=== PATIENT | female | born 1940 | race African-American/Black ===

== ENCOUNTER 2016-03-05 13:07 | Emergency (ER) | payer MEDICARE, MEDICAID ==
[~2016-03-05] VITALS: Ht 172.7 cm; Wt 72.6 kg
[~2016-03-05 13:07] MED LIST: ACET-2605 GT; ACET-868 GT; ASPI81TA2 PO; BACI15OI TP; BISA10SU8 RC; CINA30TA GT; DIVA250T4 GT; DOCU250C30 PO; LORA-258 GT; MAGN400O4 PO; NA P133E RC; NUTR250L48 GT; PANT20TA2 PO; QUET25TA GT; SIMV40TA2 GT; TEMA7.5C PO
[2016-03-05] MEDS ORDERED: DIATR MEGLU/DIATRIZOATE SODIUM 30 ML BOTTLE (GASTROGRAPHIN) ONE (13:28)
[2016-03-05 14:02] VITALS: BP 134/77
[2016-03-06] MEDS ORDERED: DOCU-270 GT (10:38)
[2016-03-06] MEDS ORDERED: MAGN400O6 GT (10:38)
[2016-03-06] MEDS ORDERED: DEXT1CAP3 GT (10:38)
[2016-03-06] MEDS ORDERED: NUT.237L31 GT (10:38)
== END 2016-03-05 14:02 | disposition home or self-care (01) ==
LOC: ER 13:08
DX: K94.23 Gastrostomy malfunction (principal); Z88.5 Allergy status to narcotic agent; Z88.8 Allergy status to other drugs, medicaments and biological substances; I10 Essential (primary) hypertension; E11.9 Type 2 diabetes mellitus without complications; R56.9 Unspecified convulsions
CPT/HCPCS: 74000-TC; A4606; Q9963; Z7610

== ENCOUNTER 2016-03-06 08:02 | Emergency (ER) | payer MEDICARE, MEDICAID ==
[~2016-03-06] VITALS: Ht 172.7 cm; Wt 90.7 kg
[2016-03-06] MEDS ORDERED: DIATR MEGLU/DIATRIZOATE SODIUM 30 ML BOTTLE (GASTROGRAPHIN) ONE (10:12)
[2016-03-06 10:15] LABS: BASOPHILS % (AUTO) 0.5 % (0.0-2.0); DIFF TOTAL % 100 %; EOSINOPHILS # (AUTO) 0.1 /CMM (0.0-0.7); EOSINOPHILS % (AUTO) 1.3 % (0.0-6.0); HEMATOCRIT 40 % (33-45); HEMOGLOBIN 13.5 g/dL (11.5-14.8); LYMPHOCYTES # (AUTO) 1.8 /CMM (0.8-4.8); MEAN CORPUSCULAR HEMOGLOBIN 32 PG (26.0-33.0); MEAN CORPUSCULAR HGB CONC 34 g/dl (31.0-36.0); MEAN CORPUSCULAR VOLUME 97 fL (82-100); MONOCYTES # (AUTO) 0.9 /CMM (0.1-1.30); MONOCYTES % (AUTO) 14.3 % (2.0-12.0); NEUTROPHILS # (AUTO) 3.5 /CMM (1.8-8.9); NEUTROPHILS % (AUTO) 54.9 % (43.0-81.0); PLATELET COUNT (AUTO) 119 /CMM (150-450); RED BLOOD CELL COUNT(AUTO) 4.17 MIL/uL (4.0-5.2); WHITE BLOOD COUNT (AUTO) 6.3 K/uL (4.3-11.0)
[2016-03-06 10:21] LABS: CREATININE 0.7 mg/dL (0.6-1.3); POTASSIUM 4.4 mmol/L (3.5-5.1)
[2016-03-06] MEDS ORDERED: MAGN400O6 GT (10:38)
[2016-03-06] MEDS ORDERED: DOCU-270 GT (10:38)
[2016-03-06] MEDS ORDERED: NUT.237L31 GT (10:38)
[2016-03-06] MEDS ORDERED: DEXT1CAP3 GT (10:38)
[2016-03-06 12:18] VITALS: BP 133/81
== END 2016-03-06 12:19 | disposition home or self-care (01) ==
LOC: ER 08:07
DX: Z46.59 Encounter for fitting and adjustment of other gastrointestinal appliance and device (principal); I10 Essential (primary) hypertension; E11.9 Type 2 diabetes mellitus without complications; F20.9 Schizophrenia, unspecified; F32.9 Major depressive disorder, single episode, unspecified; F41.9 Anxiety disorder, unspecified; K21.9 Gastro-esophageal reflux disease without esophagitis; M19.90 Unspecified osteoarthritis, unspecified site; Z88.5 Allergy status to narcotic agent; Z88.8 Allergy status to other drugs, medicaments and biological substances; Z79.82 Long term (current) use of aspirin
CPT/HCPCS: 36415; 43760; 74000; 80048; 85025; 99285; A4606 ×2; Q9963; Z7610

== ENCOUNTER 2016-09-13 11:37 | Emergency (ER) | payer MEDICARE, MEDICAID ==
[~2016-09-13] VITALS: Ht 162.6 cm; Wt 63.5 kg
[~2016-09-13 11:37] MED LIST changes: -ASPI81TA2 PO; -BACI15OI TP; +DEXT1CAP3 GT; +DOCU-270 GT; -DOCU250C30 PO; -MAGN400O4 PO; +MAGN400O6 GT; +NUT.237L31 GT; -NUTR250L48 GT; -PANT20TA2 PO; -TEMA7.5C PO
--- NOTE | 2016-09-13 11:46 | NUR ---
AUNDREA FROM [facility] FOR GT REPLACEMENT. PER REPORT GT WAS DISLODGE THIS AM. MIRANDA WAS INPLACED TO MAINTAIN PATENCY. PATIENT IS AAO3. IN NO APPARENT DISTRESS. VSS
--- NOTE | 2016-09-13 12:06 | NUR ---
DR GANN AT BEDSIDE FOR GT REPLACEMENT. 16FR GTUBE INSERTED. TOLERATED WELL.
[2016-09-13] MEDS ORDERED: DIATR MEGLU/DIATRIZOATE SODIUM 30 ML BOTTLE (GASTROGRAPHIN) ONE (12:16)
--- NOTE | 2016-09-13 12:24 | NUR ---
XRAY AT BEDSIDE FOR KUB
--- NOTE | 2016-09-13 13:05 | NUR ---
CALLED [facility] FOR TRANSPORT TO [facility], ETA 30 MIN
--- NOTE | 2016-09-13 14:04 | NUR ---
NEW ETA [phone]
[2016-09-13 14:33] VITALS: BP 130/74
--- NOTE | 2016-09-13 14:36 | NUR ---
Patient discharged to SNF in stable condition. Written and verbal after care instructions given. readers' advisory service librarian verbalizes understanding of instruction.
== END 2016-09-13 14:34 ==
LOC: ER 11:38
DX: Z43.1 Encounter for attention to gastrostomy (principal); E11.9 Type 2 diabetes mellitus without complications; E78.00 Pure hypercholesterolemia, unspecified; I10 Essential (primary) hypertension; K21.9 Gastro-esophageal reflux disease without esophagitis; K59.00 Constipation, unspecified; M85.80 Other specified disorders of bone density and structure, unspecified site; R56.9 Unspecified convulsions; Z88.5 Allergy status to narcotic agent; Z88.8 Allergy status to other drugs, medicaments and biological substances; F25.9 Schizoaffective disorder, unspecified
CPT/HCPCS: 74000-TC; A4606; Q9963; Z7610

== ENCOUNTER 2017-06-23 17:38 | Emergency (ER) | payer MEDICARE, MEDICAID ==
[~2017-06-23] VITALS: Ht 167.6 cm; Wt 73.0 kg
[~2017-06-23 17:38] MED LIST changes: -CINA30TA GT; +CINA30TA2 GT
--- NOTE | 2017-06-23 18:00 | NUR ---
BIB PRIVATE EMT, G-TUBE REPLACEMENT.
--- NOTE | 2017-06-23 18:11 | NUR ---
HSANTA AT BS FOR GT REPLACEMENT
[2017-06-23] MEDS ORDERED: DIATR MEGLU/DIATRIZOATE SODIUM 30 ML BOTTLE (GASTROGRAPHIN) ONE (18:15)
--- NOTE | 2017-06-23 19:17 | NUR ---
CALLED [facility] FOR TRANSPORT ETA OF [phone] WAS GIVEN. TRIP#[id number]
[2017-06-23 21:36] VITALS: BP 112/78
== END 2017-06-23 21:37 | disposition home or self-care (01) ==
LOC: ER 17:45
DX: Z43.1 Encounter for attention to gastrostomy (principal); I10 Essential (primary) hypertension; E11.9 Type 2 diabetes mellitus without complications; K21.9 Gastro-esophageal reflux disease without esophagitis; F31.9 Bipolar disorder, unspecified; F20.9 Schizophrenia, unspecified; M06.9 Rheumatoid arthritis, unspecified; E78.00 Pure hypercholesterolemia, unspecified; D64.9 Anemia, unspecified; Z88.5 Allergy status to narcotic agent; Z88.8 Allergy status to other drugs, medicaments and biological substances
CPT/HCPCS: 43760; 74018; 99284; A4606; Q9963; Z7610

== ENCOUNTER 2017-07-09 13:01 | Inpatient (IN) | payer MEDICARE, MEDICAID ==
[~2017-07-09] VITALS: Ht 162.6 cm; Wt 65.3 kg
--- NOTE | 2017-07-09 13:10 | NUR ---
BB PRIVATE EMS FROM [facility] FOR EVAL OF MASS TO RT BREAST, NOTED ON 07/07. NAD NOTED, VSS, RESP EVEN AND UNLABORED, PT WAS PUT ON HOSPITAL GOWN AND MONITOR. AT FOR EVAL.
--- NOTE | 2017-07-09 13:20 | NUR ---
CALLED NURSING SUP AND REQUESTED A MED SURG BED FOR THIS PT.
--- NOTE | 2017-07-09 13:25 | NUR ---
CALLED [facility] FOR PANEL CALL AND DR MORRISON WAS PAGED.
[2017-07-09] MEDS ORDERED: ASPI-1169 GT (13:40)
[2017-07-09] MEDS ORDERED: AMIN30LI2 GT (13:40)
[2017-07-09] MEDS ORDERED: NUT.237L30 GT (13:40)
[2017-07-09] MEDS ORDERED: VALP250S22 GT (13:40)
[2017-07-09 13:50] LABS: BASOPHILS # (AUTO) 0.1 /CMM (0.0-0.2); BASOPHILS % (AUTO) 1.6 % (0.0-2.0); EOSINOPHILS % (AUTO) 0.5 % (0.0-6.0); HEMATOCRIT 42 % (33-45); HEMOGLOBIN 13.8 g/dL (11.5-14.8); LYMPHOCYTES # (AUTO) 2.9 /CMM (0.8-4.8); LYMPHOCYTES % (AUTO) 39.2 % (20.0-44.0); MEAN CORPUSCULAR HGB CONC 33 g/dl (31.0-36.0); MEAN CORPUSCULAR VOLUME 96 fL (82-100); MONOCYTES # (AUTO) 0.6 /CMM (0.1-1.30); MONOCYTES % (AUTO) 7.7 % (2.0-12.0); NEUTROPHILS # (AUTO) 3.8 /CMM (1.8-8.9); PLATELET COUNT (AUTO) 168 /CMM (150-450); RDW COEFFICIENT OF VARIATION 13.2 (11.5-15.0); RED BLOOD CELL COUNT(AUTO) 4.32 MIL/uL (4.0-5.2); WHITE BLOOD COUNT (AUTO) 7.4 K/uL (4.3-11.0)
[2017-07-09 13:58] LABS: CALCIUM, SERUM 9.3 mg/dL (8.5-10.1); CARBON DIOXIDE 28 mmol/L (21-32); CHLORIDE 104 mmol/L (98-107); CREATININE 0.6 mg/dL (0.6-1.3); GLUCOSE 104 mg/dL (74-106); POTASSIUM 5.1 mmol/L (3.5-5.1); SODIUM SERUM 138 mmol/L (136-145); UREA NITROGEN, BLOOD 17 mg/dL (7-18)
--- NOTE | 2017-07-09 14:19 | NUR ---
PT IS ASSIGNED TO MED SURG RM#: [id number], PT IS DIAGNOSED WITH BREAST MASS, AND DR MORRISON IS THE ACCEPTING MD.
[2017-07-09 14:29] LABS: INR 0.99 (0.85-1.15)
[2017-07-09] MEDS ORDERED: Z GUARD REMEDY 2 OZ OINT TP PRN (14:30)
[2017-07-09] MEDS ORDERED: ZOLPIDEM TARTRATE 5 MG TABLET GT PRN (14:30)
[2017-07-09] MEDS ORDERED: MAGNESIUM HYDROXIDE 30 ML UDC GT PRN (14:30)
[2017-07-09] MEDS ORDERED: BISACODYL SUPP (10 MG) 10 MG/SUPP.RECT SUPP.RECT RC PRN (14:30)
[2017-07-09] MEDS ORDERED: LORAZEPAM 0.5 MG TABLET GT PRN (14:30)
[2017-07-09] MEDS ORDERED: MAG HYDROX/AL HYDROX/SIMETH 30 ML UDC GT PRN (14:30)
[2017-07-09] MEDS ORDERED: ACETAMINOPHEN 325 MG TABLET PO PRN (14:30)
[2017-07-09] MEDS ORDERED: ONDANSETRON HCL/PF 4 MG/2 ML VIAL IVP PRN (14:30)
[2017-07-09] MEDS ORDERED: GLUCERNA 1.2 1,000 ML BOTTLE GT SCH (14:30)
[2017-07-09] MEDS ORDERED: ACETAMINOPHEN 650 MG/20.3 ML UDC GT PRN (15:30)
--- NOTE | 2017-07-09 15:30 | NUR ---
MS RN NOTES PATIENT ADMITTED TO UNIT, ARRIVED AT 1520 VIA GURNEY, REPORT RECEIVED FROM LASHA FRANCOIS. PATIENT AWAKE, ALERT AND ORIENTED X 4, VERBALLY RESPONSIVE AND RESPONDS TO VERBAL AND TACTILE STIMULI. PATIENT BREATHING EVEN AND UNLABORED. NO SOB OR ACUTE DISTRESS NOTED AT THIS TIME. PATIENT AFEBRILE, SKIN DRY AND WARM TO TOUCH. NO CHANGES IN LOC NOTED AT THIS TIME. PATIENT ADMITTED BY DR. MORRISON, WITH DX OF RIGHT CHEST MASS. NOTED WITH APPROX. 3x3cm LUMP ON RIGHT BREAST. LUMP FIRM AND FORMED, SKIN ON SITE INTACT WITH ORANGE PEEL-LIKE PRESENTATION. PATIENT ACCOMPANIED BY DAUGHTERS AT BEDSIDE. PATIENT AND FAMILY ORIENTED TO UNIT, STAFF, PHYSICIAN, ACTIVITIES, MEDICATIONS AND VERBALIZED UNDERSTANDING. WILL CONTINUE TO MONITOR. MAINTAINED ASPIRATION PRECAUTION, SEIZURE PRECAUTION. BED LOCKED AND IN LOW POSITION. BILATERAL UPPER SIDE RAILS UP AND LOCKED. CALL LIGHT WITHIN EASY REACH
[2017-07-09] MEDS: ENOXAPARIN SODIUM 40 MG/0.4 ML DISP.SYRIN SQ SCH (15:45)
[2017-07-09] MEDS: PROSOURCE / PROSTAT (PYXIS) 30 ML UDC GT SCH (15:45)
[2017-07-09] MEDS: IV NS 0.9% 1,000 ML IV PRN (16:24)
[2017-07-09] MEDS: QUETIAPINE FUMARATE 25 MG TABLET GT SCH (17:52)
--- NOTE | 2017-07-09 17:52 | NUR ---
MS RN NOTES PATIENT NPO PRIOR TO CTA. 1800 MEDICATION NOT ADMINISTERED. MD AWARE. WILL CONTINUE TO MONITOR
--- NOTE | 2017-07-09 18:26 | NUR ---
MS RN NOTES DR. MORRISON WITH ORDER FOR CT CHEST WITH AND WITHOUT CONTRAST, VERIFIED INFORMED CONSENT OBTAINED BY FROM RITA, DAUGHTER AND WITNESSED. RADIOLOGY AWARE. WILL CONTINUE TO MONITOR
--- NOTE | 2017-07-09 18:48 | NUR ---
MS RN NOTES PATIENT RESTING INSIDE ROOM. AWAKE, ALERT AND ORIENTED. VERBALLY RESPONSIVE AND RESPONDS TO VERBAL AND TACTILE STIMULI. ABLE TO MAKE NEEDS KNOWN AND FOLLOW SIMPLE INSTRUCTIONS. BREATHING EVEN AND UNLABORED. NO SOB OR ACUTE DISTRESS NOTED AT THIS TIME. PATIENT CALM AND RELAXED. DAUGHTER GLORIETTE AT BEDSIDE. AWAITING FOR CT CHEST WITH + WITHOUT CONTRAST. AWAITING FOR RADIOLOGY. WILL ENDORSE TO INCOMING SHIFT FOR JOSE GUADALUPE. BED LOCKED AND IN LOW POSITION. BILATERAL UPPER SIDE RAILS UP AND LOCKED. CALL LIGHT WITHIN EASY REACH
[2017-07-09] MEDS ORDERED: IOHEXOL-300 100 ML VIAL IV ONE (19:01)
[2017-07-09 20:00] VITALS: BP 122/63
[2017-07-09] MEDS: VALPROIC ACID 250 MG/5 ML UDC GT SCH (21:44)
[2017-07-09] MEDS: DOCUSATE SODIUM LIQ 100 MG/10 ML UDC GT SCH (21:44)
[2017-07-10] MEDS: QUETIAPINE FUMARATE 25 MG TABLET GT SCH ×4 (00:07→17:30)
[2017-07-10] MEDS: VALPROIC ACID 250 MG/5 ML UDC GT SCH ×3 (05:31→21:14)
[2017-07-10 07:09] LABS: BASOPHILS % (AUTO) 0.4 % (0.0-2.0); HEMATOCRIT 39 % (33-45); HEMOGLOBIN 12.9 g/dL (11.5-14.8); LYMPHOCYTES # (AUTO) 3.8 /CMM (0.8-4.8); LYMPHOCYTES % (AUTO) 58.6 % (20.0-44.0); MEAN CORPUSCULAR HGB CONC 34 g/dl (31.0-36.0); MEAN CORPUSCULAR VOLUME 97 fL (82-100); MONOCYTES # (AUTO) 0.5 /CMM (0.1-1.30); NEUTROPHILS # (AUTO) 2.1 /CMM (1.8-8.9); PLATELET COUNT (AUTO) 172 /CMM (150-450); RDW COEFFICIENT OF VARIATION 14.1 (11.5-15.0); RED BLOOD CELL COUNT(AUTO) 3.98 MIL/uL (4.0-5.2); WHITE BLOOD COUNT (AUTO) 6.5 K/uL (4.3-11.0)
--- NOTE | 2017-07-10 07:20 | NUR ---
ms rn initial notes Received patient in bed, awake, head of bed elevated, no SOB or distress noted, on room air and tolerated well. GT feeding intact and patent with feeding infusing well. IV in placed with IVF infusing well 75ml/hr. Alert and oriented x 2. No facial grimace noted. Call light with in patient reach, will continue to monitor accordingly.
[2017-07-10 07:25] LABS: CALCIUM, SERUM 9.3 mg/dL (8.5-10.1); CARBON DIOXIDE 30 mmol/L (21-32); CHLORIDE 106 mmol/L (98-107); CREATININE 0.6 mg/dL (0.6-1.3); GLUCOSE 102 mg/dL (74-106); MAGNESIUM 1.8 mg/dL (1.8-2.4); PHOSPHORUS 2.8 mg/dL (2.5-4.9); POTASSIUM 4.1 mmol/L (3.5-5.1); SODIUM SERUM 143 mmol/L (136-145); UREA NITROGEN, BLOOD 15 mg/dL (7-18)
[2017-07-10] MEDS: IV NS 0.9% 1,000 ML IV PRN ×2 (07:27→17:34)
[2017-07-10 07:30] LABS: CHOLESTEROL 140 mg/dL (<200); HDL CHOLESTEROL 49 mg/dL (40-60); LDL 82 mg/dL (0-99); TRIGLYCERIDES 90 mg/dL (30-150)
[2017-07-10 08:00] VITALS: BP 129/62
[2017-07-10] MEDS: ASPIRIN 81 MG TAB.CHEW GT SCH (08:38)
[2017-07-10] MEDS: ENOXAPARIN SODIUM 40 MG/0.4 ML DISP.SYRIN SQ SCH (08:39)
[2017-07-10] MEDS: PROSOURCE / PROSTAT (PYXIS) 30 ML UDC GT SCH (08:39)
[2017-07-10 10:00] VITALS: BP 129/62
[2017-07-10] MEDS ORDERED: JEVITY 1.2 CAL 1,000 ML BOTTLE GT PRN (13:00)
[2017-07-10 16:00] VITALS: BP 122/55
[2017-07-10] MEDS: ACETYLCYSTEINE 10% 3,000 MG/30 ML VIAL PO SCH (19:18)
--- NOTE | 2017-07-10 19:25 | NUR ---
ms rn closing notes All needs provided, attended, and anticipated, patient is in stable condition at this time. Endorsed to next shift rn to continue care. Call light with in patient reach.
--- NOTE | 2017-07-10 19:30 | NUR ---
MS RN OPENING NOTES: PATIENT IN BED, AWAKE, NON VERBAL. ON ROOM AIR, BREATHING EVEN AND UNLABORED. BREATH SOUNDS CLEAR TO AUSCULTATION. APPEARS CALM AND IN NO DISTRESS. PATIENT HAS GTUBE, WITH FEEDING OF GLUCERNA CURRENTLY RUNNING AT 40 ML/HR. ABDOMEN SOFT, GT SITE CLEAN, NO REDNESS, SWELLING OR DISCHARGE NOTED. PIV OVER R HAND G 22 INTACT AND INFUSING WELL WITH NS RUNNING AT 75 ML/HR. PROVIDED FOR COMFORT AND SAFETY. BED IN LOWEST AND LOCKED POSITION, SIDERAILS UP X 3, CALL LIGHT WITHIN REACH. WILL CONT TO MONITOR.
[2017-07-10 20:00] VITALS: BP 113/72
[2017-07-10 20:44] VITALS: BP 113/72
[2017-07-10] MEDS: DOCUSATE SODIUM LIQ 100 MG/10 ML UDC GT SCH (21:14)
[2017-07-11] MEDS: QUETIAPINE FUMARATE 25 MG TABLET GT SCH ×5 (00:26→17:26)
[2017-07-11] MEDS: VALPROIC ACID 250 MG/5 ML UDC GT SCH ×2 (04:54→13:09)
--- NOTE | 2017-07-11 04:55 | NUR ---
RN NOTES: MORNING CARE RENDERED, WOUND TREATMENT DONE. PATIENT ABLE TO TALK AT THIS TIME, PATIENT IS AOX4, ABLE TO SAY WHERE SHE IS, WHAT YEAR AND MONTH IT IS, AND WHO THE PRESIDENT IS. SHE WAS ALSO ABLE TO SAY CLEARLY WHY SHE WAS BROUGHT TO THE HOSPITAL, STATES "I HAVE A LUMP IN MY BREAST".
[2017-07-11] MEDS: IV NS 0.9% 1,000 ML IV PRN (05:08)
--- NOTE | 2017-07-11 06:30 | NUR ---
RN NOTES: OBTAINED TELEPHONE CONSENT FOR CT SCAN OF ABDOMEN AND PELVIS, WITH AND WITHOUT CONTRAST FROM PATIENT'S DAUGHTER/ PERSON TO NOTIFY: DARSHAN. PHONE CONSENT WITNESSED BY PRISCILA SHAH. PATIENT'S TUBE FEEDING HELD TEMPORARILY, FOR NPO X4 HRS. RADIOLOGY DEPT INFORMED.
--- NOTE | 2017-07-11 06:55 | NUR ---
MS RN CLOSING NOTES: PATIENT IN BED, AOX4, ON ROOM AIR, BREATHING EVEN AND UNLABORED. APPEARS CALM AND IN NO DISTRESS. GT FEEDING OF JEVITY 1.2 HELD FOR NOW, FOR CT SCAN OF ABDOMEN AND PELVIS WITH AND WITHOUT CONTRAST. PROVIDED FOR COMFORT AND SAFETY. MORNING CARE RENDERED. TURNED AND REPOSITIONED. BED IN LOWEST AND LOCKED POSITION, SIDERAILS UP X 3, BED ALARMS ON. NO ACUTE CHANGE IN CONDITION NOTED THROUGH SHIFT. WILL ENDORSE TO AM RN FOR JOSE GUADALUPE.
[2017-07-11 07:09] LABS: BASOPHILS % (AUTO) 0.6 % (0.0-2.0); EOSINOPHILS % (AUTO) 1.3 % (0.0-6.0); HEMATOCRIT 35 % (33-45); HEMOGLOBIN 11.7 g/dL (11.5-14.8); LYMPHOCYTES # (AUTO) 3.1 /CMM (0.8-4.8); LYMPHOCYTES % (AUTO) 51.1 % (20.0-44.0); MEAN CORPUSCULAR HGB CONC 34 g/dl (31.0-36.0); MEAN CORPUSCULAR VOLUME 97 fL (82-100); MONOCYTES # (AUTO) 0.5 /CMM (0.1-1.30); MONOCYTES % (AUTO) 8.7 % (2.0-12.0); NEUTROPHILS # (AUTO) 2.3 /CMM (1.8-8.9); NEUTROPHILS % (AUTO) 38.3 % (43.0-81.0); PLATELET COUNT (AUTO) 137 /CMM (150-450); RDW COEFFICIENT OF VARIATION 13.9 (11.5-15.0); RED BLOOD CELL COUNT(AUTO) 3.62 MIL/uL (4.0-5.2)
[2017-07-11 07:18] LABS: CALCIUM, SERUM 8.8 mg/dL (8.5-10.1); CARBON DIOXIDE 26 mmol/L (21-32); CHLORIDE 110 mmol/L (98-107); CREATININE 0.6 mg/dL (0.6-1.3); GLUCOSE 105 mg/dL (74-106); MAGNESIUM 1.7 mg/dL (1.8-2.4); PHOSPHORUS 2.8 mg/dL (2.5-4.9); POTASSIUM 4.1 mmol/L (3.5-5.1); SODIUM SERUM 143 mmol/L (136-145); UREA NITROGEN, BLOOD 14 mg/dL (7-18)
[2017-07-11 08:00] VITALS: BP 127/57
[2017-07-11] MEDS: ENOXAPARIN SODIUM 40 MG/0.4 ML DISP.SYRIN SQ SCH (09:00)
[2017-07-11] MEDS: ACETYLCYSTEINE 10% 3,000 MG/30 ML VIAL PO SCH ×3 (09:00→17:25)
[2017-07-11] MEDS ORDERED: IOHEXOL-300 100 ML VIAL IV ONE (10:46)
[2017-07-11] MEDS ORDERED: CT SWABBABLE VALVE TRANS SET 1 EA INFUS.SET MC ONE (10:46)
[2017-07-11] MEDS ORDERED: IV NS 0.9% 500 ML IV ONE (10:46)
[2017-07-11] MEDS: ASPIRIN 81 MG TAB.CHEW GT SCH (11:35)
[2017-07-11] MEDS: PROSOURCE / PROSTAT (PYXIS) 30 ML UDC GT SCH (11:35)
[2017-07-11] MEDS: Magnesium 1GM/D5W 100ML PREMIX 100 ML IV SCH ×2 (13:10→14:31)
[2017-07-11 16:00] VITALS: BP 111/55
--- NOTE | 2017-07-11 17:30 | NUR ---
DTR. REFUSING SEROQUEL AT 1300 AND 1700 PM.STATES MOM TOO SLEEPY.
--- NOTE | 2017-07-11 17:45 | NUR ---
MG IV REPLACEMENT DONE.
--- NOTE | 2017-07-11 18:00 | NUR ---
PT. REFUSED DISCHARGE PHOTOS.
--- NOTE | 2017-07-11 18:45 | NUR ---
REPORT CALLED TO STEPHANIE AT IN FACILITY.
--- NOTE | 2017-07-11 19:50 | NUR ---
CLERK OF SUPERIOR COURT NOTES RECEIVED REPORT THAT PATIENT IS GOING TO BE DISCHARGED TONIGHT. DR MYLES AT PATIENT'S BEDSIDE. ALL DISCHARGE INSTRUCTIONS GIVEN TO ENRIQUETA, PATIENT'S DAUGHTER, BELONGINGS LIST SIGNED. PATIENT IN BED, IN STABLE CONDITION. IV LINE REMOVED. PERSONNEL FROM [facility] IN THE UNIT FOR TO ORACLE BPM CONSULTANT PATIENT FOR TRANSPORTATION. REPORT GIVEN FOR TRANSFER OF CARE. PERSONNEL SAFELY TRANSFERRED PATIENT FROM BED TO RNEY. LEFT UNIT SAFELY VIA RNEY IN STABLE CONDITION.
== END 2017-07-11 19:15 | DRG 597 ==
LOC: ER 13:47 → MED 14:37
PROVIDERS: ADMIT Internal Medicine; ATTEND Internal Medicine
DX: C50.911 Malignant neoplasm of unspecified site of right female breast (principal); G93.40 Encephalopathy, unspecified; E44.0 Moderate protein-calorie malnutrition; R53.2 Functional quadriplegia; R13.10 Dysphagia, unspecified; D64.9 Anemia, unspecified; F20.9 Schizophrenia, unspecified; Z93.1 Gastrostomy status; E11.9 Type 2 diabetes mellitus without complications; E78.5 Hyperlipidemia, unspecified; F31.9 Bipolar disorder, unspecified; G40.909 Epilepsy, unspecified, not intractable, without status epilepticus; K21.9 Gastro-esophageal reflux disease without esophagitis; K59.00 Constipation, unspecified; M06.9 Rheumatoid arthritis, unspecified; M62.40 Contracture of muscle, unspecified site; Z86.73 Personal history of transient ischemic attack (TIA), and cerebral infarction without residual deficits; I10 Essential (primary) hypertension; Z79.899 Other long term (current) drug therapy; Z79.84 Long term (current) use of oral hypoglycemic drugs; Z87.440 Personal history of urinary (tract) infections; Z88.5 Allergy status to narcotic agent; Z88.8 Allergy status to other drugs, medicaments and biological substances
CPT/HCPCS: 36415; 71045-TC; 71270-TC; 76642-TC; 80048-TC; 80061-TC; 83735-TC; 84100-TC; 85025-TC; 85730-TC; 86300; 87081-TC; 93307-TC; A4217; A4606; J1650; J7030; J7040; Q9967; Z7610

== ENCOUNTER 2017-12-31 17:25 | Emergency (ER) | payer MEDICARE, MEDICAID ==
[~2017-12-31] VITALS: Ht 162.6 cm; Wt 65.3 kg
[~2017-12-31 17:25] MED LIST changes: +AMIN30LI2 GT; +ASPI-1169 GT; -DEXT1CAP3 GT; -DIVA250T4 GT; +NUT.237L30 GT; -NUT.237L31 GT; -SIMV40TA2 GT; +VALP250S22 GT
[2017-12-31 17:29] VITALS: BP 143/89
[2017-12-31] MEDS ORDERED: DIATR MEGLU/DIATRIZOATE SODIUM 30 ML BOTTLE (GASTROGRAPHIN) ONE (17:33)
--- NOTE | 2017-12-31 17:33 | NUR ---
22FR GTUBE INSERTED BTY DR SALGADO, TOLERATED WELL. CALLED RADIOLOGY FOR STAT KUB.
--- NOTE | 2017-12-31 17:41 | NUR ---
REPORT GIVEN TO ANN GUERRERO FOR TRANSPORT BACK TO [facility] Addendum: 12/31/17 at 1802 by HFOX AMMENCONSTANTINEENT: [facility]
--- NOTE | 2017-12-31 18:02 | NUR ---
PATIENT DISCHARGED IN STABLE CONDITION VIA [facility].
[2018-01-04] MEDS ORDERED: ANAS1TAB8 GT (14:58)
[2018-01-04] MEDS ORDERED: ONDA8TAB6 GT (14:58)
[2018-01-04] MEDS ORDERED: CAPE500T GT (14:58)
[2018-01-04] MEDS ORDERED: PROC10TA29 GT (14:58)
[2018-01-08] MEDS ORDERED: LEVO750T21 PO (11:15)
== END 2017-12-31 18:01 ==
LOC: ER 17:31
DX: K94.23 Gastrostomy malfunction (principal); R56.9 Unspecified convulsions; I67.4 Hypertensive encephalopathy; K21.9 Gastro-esophageal reflux disease without esophagitis; N39.0 Urinary tract infection, site not specified; E11.9 Type 2 diabetes mellitus without complications; F20.9 Schizophrenia, unspecified; F31.9 Bipolar disorder, unspecified; R13.10 Dysphagia, unspecified; E78.00 Pure hypercholesterolemia, unspecified; Z88.5 Allergy status to narcotic agent; Z79.82 Long term (current) use of aspirin; Z88.8 Allergy status to other drugs, medicaments and biological substances
CPT/HCPCS: 74018; A4606; Q9963; Z7610

== ENCOUNTER 2018-03-30 12:50 | Emergency (ER) | payer MEDICARE, MEDICAID ==
[~2018-03-30] VITALS: Ht 165.1 cm; Wt 68.0 kg
[~2018-03-30 12:50] MED LIST changes: +ANAS1TAB8 GT; -CINA30TA2 GT; +LEVO750T21 PO; +ONDA8TAB6 GT; +PROC10TA29 GT; -QUET25TA GT
--- NOTE | 2018-03-30 13:04 | NUR ---
AUNDREA FROM [facility], PT PULLED OUT G-TUBE THIS MORNING. TO ER BED 5, HOOKED TO MONITOR, AWAITING MD MA.
--- NOTE | 2018-03-30 13:06 | NUR ---
DR LIMA AT BEDSIDE FOR REINSERTION OF G-TUBE.
--- NOTE | 2018-03-30 13:12 | NUR ---
CALLED TRANSPORT ETA IS 1415 PER JOSE TRIP #[id number]
--- NOTE | 2018-03-30 13:41 | NUR ---
PT PICKED UP BY [facility] UNIT [facility] IN STABLE CONDITION, WILL BE BROUGHT BACK TO [facility]. Written and verbal after care instructions given. Patient verbalizes understanding of instruction.
[2018-03-30 13:43] VITALS: BP 138/72
== END 2018-03-30 13:44 ==
LOC: ER 12:54
DX: K94.23 Gastrostomy malfunction (principal); R56.9 Unspecified convulsions; G93.40 Encephalopathy, unspecified; I10 Essential (primary) hypertension; K21.9 Gastro-esophageal reflux disease without esophagitis; E11.9 Type 2 diabetes mellitus without complications; F20.9 Schizophrenia, unspecified; F31.9 Bipolar disorder, unspecified; R13.10 Dysphagia, unspecified; E78.00 Pure hypercholesterolemia, unspecified; Z88.5 Allergy status to narcotic agent; Z95.5 Presence of coronary angioplasty implant and graft; Z88.8 Allergy status to other drugs, medicaments and biological substances; Z79.82 Long term (current) use of aspirin

== ENCOUNTER 2018-11-24 00:48 | Emergency (ER) | payer MEDICARE, MEDICAID ==
[~2018-11-24] VITALS: Ht 165.1 cm; Wt 81.6 kg
--- NOTE | 2018-11-24 01:00 | NUR ---
PT AUNDREA FOR G-TUBE REPLACEMENT, SINCE 1030PM. PT AXO2. RESPIRATIONS EVEN AND UNLABORED. PT HAS MIRANDA IN PLACE OF G-TUBE UPON ARRIVAL. PT PUT ON THE CANDY CATCHER AND PULSE OX.
--- NOTE | 2018-11-24 01:50 | NUR ---
[facility] [id number] [facility] [id number]
[2018-11-24] MEDS ORDERED: DIATR MEGLU/DIATRIZOATE SODIUM 30 ML BOTTLE (GASTROGRAPHIN) ONE ×2 (02:00→02:07)
[2018-11-24] MEDS ORDERED: DIATR MEGLU/DIATRIZOATE SODIUM 120 ML BOTTLE (GASTROGRAPHIN) PO ONE ×2 (02:00→02:30)
--- NOTE | 2018-11-24 02:43 | NUR ---
GAVE REPORT TO MYKEL Mojica FOR TRANSPORTATION JOSE GUADALUPE
[2018-11-24 02:56] VITALS: BP 111/65
== END 2018-11-24 02:57 | disposition home or self-care (01) ==
LOC: ER 00:52
DX: K94.23 Gastrostomy malfunction (principal); I10 Essential (primary) hypertension; K21.9 Gastro-esophageal reflux disease without esophagitis; E11.9 Type 2 diabetes mellitus without complications; M06.9 Rheumatoid arthritis, unspecified; F20.9 Schizophrenia, unspecified; F31.9 Bipolar disorder, unspecified; E78.00 Pure hypercholesterolemia, unspecified; D64.9 Anemia, unspecified; Z88.5 Allergy status to narcotic agent; Z88.8 Allergy status to other drugs, medicaments and biological substances; Z79.82 Long term (current) use of aspirin; Z79.899 Other long term (current) drug therapy
CPT/HCPCS: 43762; 74018 ×2; 99284; Q9963 ×4

== ENCOUNTER 2019-03-06 10:33 | Inpatient (IN) | payer MEDICARE, MEDICAID ==
[~2019-03-06] VITALS: Ht 152.4 cm; Wt 81.6 kg
[2019-03-06] VITALS (35 sets, daily range): BP systolic 57–111; BP diastolic 35–56
--- NOTE | 2019-03-06 10:38 | NUR ---
KURT 86 FROM [facility] FOR TACHYCARDIA AND O2 DESATURATION. PATIENT BROUGHT INTO ED ON NON-REBREATHER MASK @ 15LPM AT 90% O2 SATURATION, TO ER BED 8, HOOKED TO BEER MERCHANT, NOTED WITH TACHYCARDIA AT 161 BPM, PATIENT WITH RH 22G IV PERIPHERAL LINE, PATENT AND FLUSHING. RT AT BEDSIDE. DR SNELL AT BEDSIDE.
[2019-03-06] MEDS ORDERED: MULT-447 GT (10:45)
[2019-03-06] MEDS ORDERED: ABEM150T GT (10:45)
[2019-03-06] MEDS ORDERED: DIVA125T2 GT (10:45)
[2019-03-06] MEDS ORDERED: ACETAMINOPHEN 650 MG/SUPP.RECT RC ONE ×2 (10:50→11:00)
[2019-03-06 10:56] LABS: ABG BASE EXCESS -3.7 mmol/L; ABG OXYGEN SATURATION 92.3 % (92.0-98.5); ABG PCO2 35.4 mmHg (35.0-45.0); ABG PH 7.385 (7.350-7.450); AaDO2 613.6 mmHg; MetHb 0.4 % (0.0-1.5); O2Hb 91.9 % (94.0-97.0); SITE, ABG Left Radial; VENT MODE, BG NRB 100%
[2019-03-06] MEDS ORDERED: PIPERACILLIN /TAZOBACTAM 3.375 G in IV D5W 50 ML IV ONE (11:00)
[2019-03-06] MEDS ORDERED: VANCOMYCIN 1 GM in IV D5W 250 ML IV ONE (11:00)
[2019-03-06] MEDS ORDERED: IV NS 0.9% 1,000 ML BAG IV ONE ×2 (11:00→13:00)
[2019-03-06] MEDS ORDERED: DILTIAZEM HCL 50 MG IV IV ONE ×2 (11:00→12:00)
[2019-03-06 11:01] LABS: BASOPHILS % (AUTO) 0.8 % (0.0-2.0); EOSINOPHILS % (AUTO) 0.1 % (0.0-6.0); HEMATOCRIT 39 % (33-45); HEMOGLOBIN 12.7 g/dL (11.5-14.8); LYMPHOCYTES # (AUTO) 1.2 /CMM (0.8-4.8); LYMPHOCYTES % (AUTO) 56.4 % (20.0-44.0); MEAN CORPUSCULAR HGB CONC 33 g/dl (31.0-36.0); MEAN CORPUSCULAR VOLUME 110 fL (82-100); MONOCYTES # (AUTO) 0.2 /CMM (0.1-1.30); MONOCYTES % (AUTO) 8.6 % (2.0-12.0); NEUTROPHILS # (AUTO) 0.7 /CMM (1.8-8.9); NEUTROPHILS % (AUTO) 34.1 % (43.0-81.0); PLATELET COUNT (AUTO) 103 /CMM (150-450); RED BLOOD CELL COUNT(AUTO) 3.52 MIL/uL (4.0-5.2); WHITE BLOOD COUNT (AUTO) 2.1 K/uL (4.3-11.0)
[2019-03-06] MEDS ORDERED: DILTIAZEM HCL 25 MG IV ONE ×2 (11:01→11:36)
--- NOTE | 2019-03-06 11:02 | NUR ---
RT NOTE ABG DONE RESULTS GIVEN TO DR. MICHELA SNELL. NT SUCTION DONE. THICK BLOOD TINGED SECRETIONS NOTED.
--- NOTE | 2019-03-06 11:02 | NUR ---
RT AT BEDSIDE FOR SUCTION, NOTED WITH BLOOD TINGED SPUTUM
--- NOTE | 2019-03-06 11:03 | NUR ---
MOVE SHEET TURNED INTO ADMITTING AND CALLED FOR ICU BED
--- NOTE | 2019-03-06 11:05 | NUR ---
GOT ICU BED 250
[2019-03-06 11:07] LABS: CARBON DIOXIDE 23 mmol/L (21-32); CHLORIDE 101 mmol/L (98-107); CREATININE 1.1 mg/dL (0.6-1.3); GLUCOSE 135 mg/dL (74-106); POTASSIUM 3.1 mmol/L (3.5-5.1); SODIUM SERUM 137 mmol/L (136-145); UREA NITROGEN, BLOOD 16 mg/dL (7-18)
[2019-03-06 11:23] LABS: ALANINE AMINOTRANSFERASE 13 U/L (12-78); ALBUMIN 2.8 g/dL (3.4-5.0); ALKALINE PHOSPHATASE 66 U/L (46-116); ASPARTATE AMINOTRANSFERASE 27 U/L (15-37); B-TYPE NATRIURETIC PEPTIDE 2644 PG/ML (0-125); BILIRUBIN,DIRECT 0.1 mg/dL (0.0-0.2); BILIRUBIN,TOTAL 0.2 mg/dL (0.2-1.0); TOTAL PROTEIN, SERUM 7.5 g/dL (6.4-8.2)
--- NOTE | 2019-03-06 11:36 | NUR ---
CALLED FOR PICC LINE HOUSE SUP
--- NOTE | 2019-03-06 11:38 | NUR ---
EPIC PAGED AWAITING CALL BACK FROM [facility].
[2019-03-06] MEDS ORDERED: DILTIAZEM HCL IV 125 MG in IV NS 0.9% 100 ML IV PRN (12:00)
--- NOTE | 2019-03-06 12:05 | NUR ---
REPORT GIVEN TO JERRY FRANCOIS OF ICU
--- NOTE | 2019-03-06 12:16 | NUR ---
DR SNELL AT BEDSIDE FOR INTUBATION, RN AND RT AT BEDSIDE. RECEIVED VERBAL ORDER OF ETOMIDATE 20MG IVP FOLLOWED BY SUCCINYLCHOLINE 100MG IVP. CARRIED OUT.
--- NOTE | 2019-03-06 12:19 | NUR ---
ET TUBE IN: SIZE: 7.0 22 AT THE LIP +COLOR CHANGE +BILATERAL LUNG SOUNDS +BILATERAL CHEST RISE
--- NOTE | 2019-03-06 12:23 | NUR ---
UPDATED MALACHI EDWARDS RN AND MADE AWARE THAT PATIENT HAS BEEN INTUBATED.
--- NOTE | 2019-03-06 12:24 | NUR ---
VENT SETTINGS: RATE 16 VT: 450 O2: 100% PEEP: 5.0
[2019-03-06] MEDS ORDERED: ETOMIDATE 2 MG/ML VIAL IV ONE ×2 (12:30→14:25)
[2019-03-06] MEDS ORDERED: SUCCINYLCHOLINE CHLORIDE 20 MG/ML VIAL IV ONE ×2 (12:30→14:25)
--- NOTE | 2019-03-06 12:45 | NUR ---
RT NOTE INTUBATED PATIENT IN ER WITH PHYSICIAN ON BEDSIDE FOR RESPIRATORY DISTRESS. USED A 7.0 ETT MARKED AT 22 CM AT THE LIP. PATIENT HAS EQUAL CHEST RISE AND X RAY CONFIRMED POSITION 2 CM ABOVE THE ENEDINA. SUCTION MODERATE AMOUNT OF BLOOD SECRETIONS. PATIENT HAS COARSE BILATERAL BREATH SOUNDS. TRANSFER PATIENT TO ICU AND PLACED ON THE VENTILATOR. WILL CONTINUE TO MONITOR. Addendum: 03/06/19 at 1339 by ALLEN CR RT Amended: Links added.
[2019-03-06] MEDS ORDERED: ONDANSETRON HCL/PF 4 MG/2 ML VIAL IVP PRN (13:00)
[2019-03-06] MEDS ORDERED: NOREPINEPHRINE 8 MG in IV D5W 500 ML IV PRN ×2 (13:00→14:00)
[2019-03-06] MEDS ORDERED: Z GUARD REMEDY 2 OZ OINT TP PRN (13:00)
--- NOTE | 2019-03-06 13:00 | NUR ---
received pt from ER, alert, does not follow commands, intubated, sepsis, Acute respiratory failure, ST, OG and f/c inserted, NPO, sacral wound, low BP, fluids given, awaiting for PICC line insertion, pt cleaned, changed and repositioned, pt's daughter called, information given.
[2019-03-06 13:20] LABS: MAGNESIUM 1.5 mg/dL (1.8-2.4); PHOSPHORUS 2.2 mg/dL (2.5-4.9)
[2019-03-06] MEDS ORDERED: FEE PK DOSING 1 MIN EA MC ONE (14:01)
[2019-03-06 14:15] LABS: BAND % (MANUAL) 5 % (0.0-5.0); LYMPHOCYTES % (MANUAL) 58 % (16-48); MONOCYTES % (MANUAL) 11 % (0-11.0); NEUTROPHILS % (MANUAL) 26 (42-76)
[2019-03-06] MEDS ORDERED: FEE EMEERGENCY 1 MIN EA MC ONE (14:25)
[2019-03-06 14:53] LABS: ABG BASE EXCESS -9.1 mmol/L; ABG OXYGEN SATURATION 86.4 % (92.0-98.5); ABG PCO2 29.8 mmHg (35.0-45.0); ABG PH 7.335 (7.350-7.450); ABG PO2 51.5 mmHg (75.0-100.0); AaDO2 415.6 mmHg; COHb 0.3 % (0.5-1.5); MetHb 0.5 % (0.0-1.5); O2Hb 85.7 % (94.0-97.0); PEEP,BG 5 cm H2O; SITE, ABG Left Radial; VENT MODE, BG AC 16 450 70% +5
[2019-03-06] MEDS ORDERED: Sodium Phosphate 15 MMOL in IV D5W 250 ML IV ONE (15:30)
[2019-03-06] MEDS: IV NS 0.9% 1,000 ML IV PRN ×2 (15:32→23:38)
[2019-03-06] MEDS: HYDROCORTISONE SOD SUCCINATE 100 MG/2 ML VIAL IV SCH ×2 (15:36→17:00)
[2019-03-06] MEDS: POTASSIUM CL. PREMIX PERIPHER. 50 ML IV SCH ×4 (15:48→18:48)
[2019-03-06] MEDS: Magnesium 1GM/D5W 100ML PREMIX 100 ML IV SCH ×2 (16:10→17:31)
[2019-03-06] MEDS ORDERED: MAGNESIUM HYDROXIDE 30 ML UDC GT PRN (17:00)
[2019-03-06] MEDS ORDERED: DEXTROSE 50%-WATER 50 ML DISP.SYRIN IV PRN (17:00)
[2019-03-06] MEDS ORDERED: NA PHOS,M-B/NA PHOS,DI-BA 1 EA ENEMA RC PRN (17:00)
[2019-03-06] MEDS ORDERED: BISACODYL SUPP (10 MG) 10 MG/SUPP.RECT SUPP.RECT RC PRN (17:00)
[2019-03-06] MEDS: PROSOURCE / PROSTAT (PYXIS) 30 ML UDC GT SCH (17:46)
[2019-03-06] MEDS: PIPERACILLIN /TAZOBACTAM 3.375 G in IV D5W 100 ML IV SCH (17:49)
[2019-03-06] MEDS: BLOOD SUGAR DIAGNOSTIC 1 EACH STRIP IN SCH ×2 (18:00→23:47)
--- NOTE | 2019-03-06 18:00 | NUR ---
pt is very lethargic, opens eyes, does not follow commands, ST, on levo at 8mcg, very low urine, MD aware, NPO, v/s stable, no pain, pt cleaned, changed and repositioned, electrolytes replaced.
[2019-03-06] MEDS ORDERED: Magnesium 1GM/D5W 100ML PREMIX 100 ML IV SCH (18:30)
--- NOTE | 2019-03-06 19:30 | NUR ---
FOOD PROCESSING PLANT MANAGER NOTE RECEIVED PT INTUBATED, LETHARGIC AND WEAK. OPENS EYES SPONTANEOUSLY BUT NO TRACKING NOTED AND WITHDRAWS FROM PAIN. ON MECH VENT WITH SETTINGS WELL TOLERATED AND ON 100% FIO2. RECTAL TEMP 102 AND INITIATED COOLING MEASURES. PLACED PT ON [employer] 1ST STEP MATTRESS. TELE- ST 120'S. LUDIN PICC WITH FLUIDS INFUSING AND LEVO @ 8MCG. GT AND OGT CLAMPED. MIRANDA CATHETER IN PLACE AND DRAINING BY GRAVITY. BED ALARM ENABLED. WILL CONTINUE TO MONITOR.
--- NOTE | 2019-03-06 21:30 | NUR ---
SOUS CHEF NOTE COLLECTED URINE CULTURE, SACRAL WOUND CULTURE AND SPUTUM CULTURE AND SENT TO LAB.
[2019-03-06 22:36] LABS: APPEARANCE,URINE CLOUDY (CLEAR); BILIRUBIN,URINE NEGATIVE (NEGATIVE); BLOOD, URINE LARGE Ery/uL (NEGATIVE); COLOR,URINE YELLOW (YELLOW); KETONES,URINE NEGATIVE (NEGATIVE); LEUKOCYTE ESTERASE ,URINE NEGATIVE (NEGATIVE); NITRITE, URINE NEGATIVE (NEGATIVE); PH,URINE 5.5 (5.0-8.0); PROTEIN,URINE 100 mg/dl (NEGATIVE); UGLUCOSE NEGATIVE (NEGATIVE); UROBILINOGEN,URINE 0.2 EU/dL (0.2)
[2019-03-06 22:47] LABS: BACTERIA,URINE Few /HPF (None Seen); RBC,URINE TOO NUMEROUS TO COUN /HPF (0-2); SQUAMOUS EPITHELIAL CELL,UR Few /HPF (None Seen)
[2019-03-07] VITALS (92 sets, daily range): BP systolic 84–126; BP diastolic 41–88
[2019-03-07] MEDS ORDERED: VANCOMYCIN 0.75 GM in IV D5W 250 ML IV SCH ×2
[2019-03-07] MEDS: ACETAMINOPHEN 650 MG/SUPP.RECT RC PRN (00:29)
[2019-03-07] MEDS: PIPERACILLIN /TAZOBACTAM 3.375 G in IV D5W 100 ML IV SCH ×3 (01:42→17:12)
[2019-03-07] MEDS: PROPOFOL 100 ML IV PRN ×2 (05:02→13:55)
[2019-03-07 05:11] LABS: ALANINE AMINOTRANSFERASE 26 U/L (12-78); ALBUMIN 1.9 g/dL (3.4-5.0); ALKALINE PHOSPHATASE 40 U/L (46-116); ASPARTATE AMINOTRANSFERASE 103 U/L (15-37); BILIRUBIN,TOTAL 0.6 mg/dL (0.2-1.0); CARBON DIOXIDE 19 mmol/L (21-32); CHLORIDE 101 mmol/L (98-107); GLUCOSE 149 mg/dL (74-106); MAGNESIUM 1.6 mg/dL (1.8-2.4); PHOSPHORUS 3.9 mg/dL (2.5-4.9); POTASSIUM 3.6 mmol/L (3.5-5.1); SODIUM SERUM 133 mmol/L (136-145); TOTAL PROTEIN, SERUM 5.7 g/dL (6.4-8.2); UREA NITROGEN, BLOOD 22 mg/dL (7-18)
[2019-03-07 05:12] LABS: BASOPHILS % (AUTO) 0.4 % (0.0-2.0); HEMATOCRIT 31 % (33-45); HEMOGLOBIN 10.2 g/dL (11.5-14.8); LYMPHOCYTES # (AUTO) 1.3 /CMM (0.8-4.8); LYMPHOCYTES % (AUTO) 59.8 % (20.0-44.0); MEAN CORPUSCULAR HGB CONC 33 g/dl (31.0-36.0); MEAN CORPUSCULAR VOLUME 108 fL (82-100); MONOCYTES # (AUTO) 0.2 /CMM (0.1-1.30); MONOCYTES % (AUTO) 8.1 % (2.0-12.0); NEUTROPHILS # (AUTO) 0.7 /CMM (1.8-8.9); NEUTROPHILS % (AUTO) 31.7 % (43.0-81.0); PLATELET COUNT (AUTO) 80 /CMM (150-450); RED BLOOD CELL COUNT(AUTO) 2.83 MIL/uL (4.0-5.2); WHITE BLOOD COUNT (AUTO) 2.2 K/uL (4.3-11.0)
[2019-03-07 05:20] LABS: CHOLESTEROL 91 mg/dL (<200); HDL CHOLESTEROL 71 mg/dL (40-60); LDL 13 mg/dL (0-99); TRIGLYCERIDES 87 mg/dL (30-150)
[2019-03-07 05:44] LABS: LYMPHOCYTES % (MANUAL) 64 % (16-48); MONOCYTES % (MANUAL) 6 % (0-11.0); NEUTROPHILS % (MANUAL) 30 (42-76)
--- NOTE | 2019-03-07 06:43 | NUR ---
RT PT RECEIVED ORALLY INTUBATED ON [facility] VENT WITH NOTED SETTING. ETT PATENT AND SECURE VIA ANCHOR FAST. ENGINEERING VICE PRESIDENT NOTED. VENT ALARMS SET AND AUDIBLE. VENT TO RED OUTLET. NO SOB OR DISTRESS NOTED ON SHIFT. PT TOLERATING VENT SETTING WELL. CONTINUE CURRENT CARE AND MONITOR FOR ANY CHANGES. Addendum: 03/07/19 at 0645 by VIVIAN MATHIAS RT Amended: Links added.
[2019-03-07] MEDS: BLOOD SUGAR DIAGNOSTIC 1 EACH STRIP IN SCH ×4 (06:54→23:49)
[2019-03-07] MEDS ORDERED: NOREPINEPHRINE 16 MG in IV D5W 500 ML IV PRN (08:00)
[2019-03-07] MEDS: ACETAMINOPHEN 650 MG/20.3 ML UDC NG PRN (08:10)
--- NOTE | 2019-03-07 08:22 | NUR ---
received pt from staffing manager, sedated on Diprivan at 20mcg, ST, intubated, lungs congested, no edema, GT clamped NPO, f/c some output, cooling measures T 100.2, no BM, receiving levo at 8mcg, CVP 6, v/s stable, no pain, pt turned and repositioned.
--- NOTE | 2019-03-07 08:41 | NUR ---
WOUND CARE CONSULT: PT FOLLOWED BY PLASTIC SURGERY TEAM FOR WOUND CARE. DEFER TO SURGICAL TEAM FOR WOUND TREATMENT PLAN. PT ON FIRST STEP LOW AIRLOSS MATTRESS. WILL SEE PRN. CURRENT VASQUEZ SCORE IS 10.
[2019-03-07 08:49] LABS: ABG BASE EXCESS -9.7 mmol/L; ABG OXYGEN SATURATION 95.9 % (92.0-98.5); ABG PCO2 28.3 mmHg (35.0-45.0); ABG PH 7.335 (7.350-7.450); ABG PO2 85.3 mmHg (75.0-100.0); AaDO2 455.4 mmHg; COHb 0.3 % (0.5-1.5); MetHb 0.4 % (0.0-1.5); O2Hb 95.2 % (94.0-97.0); PEEP,BG 0 cm H2O; SITE, ABG Right Radial; VT, ABG 450 mL
[2019-03-07] MEDS: MULTIVIT W/MINERALS 1 TAB TABLET GT SCH (09:00)
[2019-03-07] MEDS: ASPIRIN 81 MG TAB.CHEW GT SCH (09:00)
[2019-03-07] MEDS: HYDROCORTISONE SOD SUCCINATE 100 MG/2 ML VIAL IV SCH ×2 (09:00→12:34)
[2019-03-07] MEDS: IV NS 0.9% 1,000 ML IV PRN ×2 (09:03→17:27)
[2019-03-07] MEDS ORDERED: Magnesium 1GM/D5W 100ML PREMIX 100 ML IV SCH (10:00)
[2019-03-07 11:20] LABS: APPEARANCE,URINE CLEAR (CLEAR); BILIRUBIN,URINE NEGATIVE (NEGATIVE); BLOOD, URINE LARGE Ery/uL (NEGATIVE); COLOR,URINE YELLOW (YELLOW); CREATININE, URINE 13.1 MG/DL (30.0-125.0); KETONES,URINE NEGATIVE (NEGATIVE); LEUKOCYTE ESTERASE ,URINE NEGATIVE (NEGATIVE); NITRITE, URINE NEGATIVE (NEGATIVE); PROTEIN,URINE TRACE mg/dl (NEGATIVE); UGLUCOSE NEGATIVE (NEGATIVE); URINE TOTAL PROTEIN 44.4 mg/dL (0-11.9); UROBILINOGEN,URINE 0.2 EU/dL (0.2)
--- NOTE | 2019-03-07 11:32 | NUR ---
VENT CHANGES BELOW MADE PER DR. GUERRA: FIO2 65% Addendum: 03/07/19 at 1133 by LETI ZARAGOZA RT Amended: Links added.
[2019-03-07 12:07] LABS: BACTERIA,URINE None seen /HPF (None Seen); SQUAMOUS EPITHELIAL CELL,UR Few /HPF (None Seen); WBC,URINE 0-2 /HPF (0-3)
[2019-03-07 14:36] LABS: EOSINOPHIL,URINE None Seen
--- NOTE | 2019-03-07 15:57 | NUR ---
VENT CHANGES BELOW MADE PER DR. GUERRA: PEEP +5 Addendum: 03/07/19 at 1558 by LETI ZARAGOZA RT Amended: Links added.
--- NOTE | 2019-03-07 16:19 | NUR ---
pt is resting in the bed, sedated on Diprivan at 20mcg, ST, on levo at 11mcg, good urine output, v/s stable, Temp 99.0, no pain, pt cleaned, changed and repositioned q2hrs.
[2019-03-07] MEDS: HYDROGEL DRESSING 90 GM TUBE TP SCH (17:01)
[2019-03-07] MEDS: PROSOURCE / PROSTAT (PYXIS) 30 ML UDC GT SCH (17:02)
--- NOTE | 2019-03-07 17:40 | NUR ---
Patient has hx of CVA and dementia. She resides at [facility] [phone]. She confined to chair most of the time and requires max to total assist with adl's. Current dc plan is to return to SNF,bedhold x7days. Addendum: 03/07/19 at 1741 by BRIGITTE WARNER RN Amended: Links added.
--- NOTE | 2019-03-07 17:59 | NUR ---
patient's family refused debridement of sacral wound, will notify
[2019-03-07 21:42] LABS: ABG BASE EXCESS -10.2 mmol/L; ABG OXYGEN SATURATION 94.4 % (92.0-98.5); ABG PCO2 26.4 mmHg (35.0-45.0); ABG PH 7.343 (7.350-7.450); ABG PO2 73.9 mmHg (75.0-100.0); AaDO2 360.8 mmHg; COHb 0.3 % (0.5-1.5); MetHb 0.5 % (0.0-1.5); O2Hb 93.6 % (94.0-97.0); PEEP,BG 5 cm H2O; SITE, ABG Right Radial; VT, ABG 450 mL
[2019-03-07] MEDS ORDERED: PHENYLEPHRINE 10 MG/ML VIAL ONE (22:24)
[2019-03-07] MEDS ORDERED: LORAZEPAM INJ 2 MG/ML VIAL IV ONE (22:30)
--- NOTE | 2019-03-07 22:30 | NUR ---
MERCHANDISING REPRESENTATIVE NOTE NOTED PT TACHYCARDIC 130'S AND TACHYPNEIC 30'S. RECEIVED ORDERS FROM MANAGER FOOD SAFETY KORY TELETYPESETTER OPERATOR FOR ATIVAN 2MG IVP X1 AND CHANGE LEVO TO MARIBELL. ORDERS NOTED AND CARRIED OUT.
[2019-03-07] MEDS: PHENYLEPHRINE 80 MG in IV D5W 250 ML IV PRN (22:35)
[2019-03-07] MEDS: VANCOMYCIN 0.75 GM in IV D5W 250 ML IV SCH (23:49)
[2019-03-08] VITALS (84 sets, daily range): BP systolic 63–127; BP diastolic 42–84
[2019-03-08] MEDS: PROPOFOL 100 ML IV PRN ×3 (00:02→16:42)
[2019-03-08] MEDS ORDERED: LORAZEPAM INJ 2 MG/ML VIAL ONE (00:40)
[2019-03-08] MEDS: PIPERACILLIN /TAZOBACTAM 3.375 G in IV D5W 100 ML IV SCH ×3 (01:52→17:19)
[2019-03-08] MEDS: IV NS 0.9% 1,000 ML IV PRN ×2 (03:30→15:29)
[2019-03-08 05:12] LABS: HEMATOCRIT 31 % (33-45); HEMOGLOBIN 10.2 g/dL (11.5-14.8); MEAN CORPUSCULAR HGB CONC 33 g/dl (31.0-36.0); MEAN CORPUSCULAR VOLUME 108 fL (82-100); PLATELET COUNT (AUTO) 72 /CMM (150-450); RED BLOOD CELL COUNT(AUTO) 2.83 MIL/uL (4.0-5.2)
[2019-03-08 05:27] LABS: ALANINE AMINOTRANSFERASE 53 U/L (12-78); ALBUMIN 1.8 g/dL (3.4-5.0); ALKALINE PHOSPHATASE 33 U/L (46-116); ASPARTATE AMINOTRANSFERASE 117 U/L (15-37); BILIRUBIN,TOTAL 1.2 mg/dL (0.2-1.0); CALCIUM, SERUM 7.9 mg/dL (8.5-10.1); CARBON DIOXIDE 17 mmol/L (21-32); CHLORIDE 108 mmol/L (98-107); CREATININE 1.9 mg/dL (0.6-1.3); GLUCOSE 134 mg/dL (74-106); MAGNESIUM 2.1 mg/dL (1.8-2.4); PHOSPHORUS 3.8 mg/dL (2.5-4.9); POTASSIUM 3.2 mmol/L (3.5-5.1); SODIUM SERUM 141 mmol/L (136-145); TOTAL PROTEIN, SERUM 5.6 g/dL (6.4-8.2); UREA NITROGEN, BLOOD 22 mg/dL (7-18)
[2019-03-08 05:29] LABS: EOSINOPHILS % (MANUAL) 1 % (0-4); LYMPHOCYTES % (MANUAL) 19 % (16-48); MONOCYTES % (MANUAL) 3 % (0-11.0); NEUTROPHILS % (MANUAL) 77 (42-76)
[2019-03-08 05:30] LABS: CREATINE KINASE, TOTAL 932 U/L (26-192)
[2019-03-08] MEDS: BLOOD SUGAR DIAGNOSTIC 1 EACH STRIP IN SCH ×4 (06:15→23:42)
[2019-03-08] MEDS ORDERED: POTASSIUM CHLORIDE 20 MEQ POWDER PACKET NG SCH (06:30)
[2019-03-08] MEDS: ACETAMINOPHEN 650 MG/20.3 ML UDC NG PRN ×2 (06:36→17:23)
--- NOTE | 2019-03-08 07:38 | NUR ---
HAND ROUTER OPERATOR NOTE NO ACUTE DISTRESS NOTED. VENT SETTINGS WELL TOLERATED AND SUCTIONED NEEDED. REMAINS INTUBATED AND SEDATED. LUDIN PICC WITH MARIBELL @80 MCG, DIP @ 25MCG AND IVF @ 125ML/HR. REPOSITIONED Q2H. ALL NEEDS ATTENDED TO PROMPTLY. WILL ENDORSE TO NEXT SHIFT FOR CONTINUITY OF CARE.
[2019-03-08] MEDS: MULTIVIT W/MINERALS 1 TAB TABLET GT SCH (08:25)
[2019-03-08] MEDS: ASPIRIN 81 MG TAB.CHEW GT SCH (08:25)
[2019-03-08] MEDS: HYDROGEL DRESSING 90 GM TUBE TP SCH (08:25)
[2019-03-08 08:40] LABS: ABG BASE EXCESS -7.7 mmol/L; ABG OXYGEN SATURATION 96.1 % (92.0-98.5); ABG PCO2 30.2 mmHg (35.0-45.0); ABG PO2 89.6 mmHg (75.0-100.0); COHb 0.3 % (0.5-1.5); MetHb 0.4 % (0.0-1.5); O2Hb 95.4 % (94.0-97.0); SITE, ABG Left Radial; VENT MODE, BG AC 450 16 70% +5
--- NOTE | 2019-03-08 08:42 | NUR ---
received pt from night time babysitter, sedated on Diprivan at 25mcg, ST, on the vent, lungs congested no edema, pt is having some semi bloody secretions, GT clamped, f/c good output, receiving jose guadalupe at 100mcg, potassium replaced, v/s stable, no pain, pt turned and repositioned.
[2019-03-08] MEDS ORDERED: POTASSIUM CHLORIDE 20 MEQ POWDER PACKET GT ONE (10:00)
[2019-03-08] MEDS: PHENYLEPHRINE 80 MG in IV D5W 250 ML IV PRN ×3 (11:32→21:31)
[2019-03-08] MEDS ORDERED: OSELTAMIVIR PHOSPHATE 75 MG CAPSULE PO SCH (12:00)
--- NOTE | 2019-03-08 16:21 | NUR ---
pt is resting in the bed, ST, sedated on Diprivan at 25mcg, receiving jose guadalupe at 260mcg, good urine output, v/s stable, no pain, pt cleaned, changed and repositioned q2hrs.
[2019-03-08] MEDS: PROSOURCE / PROSTAT (PYXIS) 30 ML UDC GT SCH (17:20)
--- NOTE | 2019-03-08 18:18 | NUR ---
RT END OF THE SHIFT REPORT Pt. rec. 78 year old female @0700 AM pt. orally intubated ETT # 7.0 @ 22 cm lip line ( left side redness blanchable on lip ) on ventilator with noted settings. Vent alarms are set and audible with Ambu bag by bedside. BET TAKER cuff pressure done, HME changed. Vent is plugged into red outlet. T/O day ABG done, FIO2 titrated to 50% per dr. Barrow order. bilaterally rales b/s noted and sux'd for minimal amount of pinky secretions, ( cold saline used to reduce bleeding ). equal chest rise noted. pt. stable and continue to monitor. report will pass to PM shift. Addendum: 03/08/19 at 1824 by PRAVEEN UP RT Amended: Links added.
--- NOTE | 2019-03-08 19:30 | NUR ---
RN NOTE: Received patient in bed, sedated and intubated with ETT 7.0 and attached to the lip line @22cm. Respiration even and unlabored saturating 97% with current ventilator setting. No facial grimacing noted. HOB elevated. Bed alarmed and locked at all times. Low bed position. Seizure precaution observed with padded side rails. (L) UA PICC line with triple lumen infusing NS@70ml/hr, Diprivan @25mcg/min and Neosynephrine @280mcg/min per MD order. CVP monitoring was noted through the (L) UA PICC line. Patient was warm to touch with cooling measures implemented. Continuous rectal temperature monitoring was in placed. Vela catheter draining to gravity with yellow urine. Patient was suctioned and a moderate amount of thin mucus was suctioned orally and through the ETT. Needs anticipated. Will continue to monitor the patient's temperature.
--- NOTE | 2019-03-08 20:15 | NUR ---
RN NOTE: Patient's daughter Vicky was present at the bedside and gave her an update regarding the patient's current condition and the plan of care. Verified with her the telephone numbers and per Vicky she can be reached at any time including her other sister Guy.
--- NOTE | 2019-03-08 20:27 | NUR ---
RECEIVED PT INTUBATED 7.0 ETT SECURED AT 22CM AT THE LIP. NO RESP DISTRESS NOTED. PT TOLERATING VENT SETTINGS. SX'D AND LAVAGE FOR MOD AMT OF TINGED SECRETIONS. VENT ALARMS SET AND AUDIBLE. AMBU BAG AT BEDSIDE. VENT PLUGGED INTO RED OUTLET. CONTINUE [facility] VENT SUPPORT. Addendum: 03/08/19 at 2030 by MCKENNA SANTILLAN RT Amended: Links added.
[2019-03-08] MEDS: VANCOMYCIN 0.75 GM in IV D5W 250 ML IV SCH (23:14)
[2019-03-09] VITALS (98 sets, daily range): BP systolic 71–139; BP diastolic 41–77
[2019-03-09] MEDS: INSULIN REGULAR, HUMAN 100 UNIT/ML 3 ML VIAL SQ PRN ×3 (00:52→17:16)
[2019-03-09] MEDS: PHENYLEPHRINE 80 MG in IV D5W 250 ML IV PRN ×5 (01:45→20:53)
[2019-03-09] MEDS: PIPERACILLIN /TAZOBACTAM 3.375 G in IV D5W 100 ML IV SCH ×3 (01:46→17:53)
[2019-03-09] MEDS: PROPOFOL 100 ML IV PRN ×3 (01:46→18:46)
[2019-03-09] MEDS: ACETAMINOPHEN 650 MG/SUPP.RECT RC PRN (02:37)
[2019-03-09 04:57] LABS: BASOPHILS % (AUTO) 0.7 % (0.0-2.0); EOSINOPHILS % (AUTO) 0.5 % (0.0-6.0); HEMATOCRIT 26 % (33-45); HEMOGLOBIN 8.8 g/dL (11.5-14.8); LYMPHOCYTES # (AUTO) 0.4 /CMM (0.8-4.8); LYMPHOCYTES % (AUTO) 13.1 % (20.0-44.0); MEAN CORPUSCULAR HGB CONC 34 g/dl (31.0-36.0); MEAN CORPUSCULAR VOLUME 110 fL (82-100); MONOCYTES % (AUTO) 0.4 % (2.0-12.0); NEUTROPHILS # (AUTO) 2.4 /CMM (1.8-8.9); NEUTROPHILS % (AUTO) 85.3 % (43.0-81.0); RED BLOOD CELL COUNT(AUTO) 2.38 MIL/uL (4.0-5.2); WHITE BLOOD COUNT (AUTO) 2.8 K/uL (4.3-11.0)
[2019-03-09 05:06] LABS: PLATELET COUNT (AUTO) 42 /CMM (150-450)
[2019-03-09 05:10] LABS: CARBON DIOXIDE 16 mmol/L (21-32); CHLORIDE 100 mmol/L (98-107); CREATININE 1.6 mg/dL (0.6-1.3); POTASSIUM 3.3 mmol/L (3.5-5.1); SODIUM SERUM 129 mmol/L (136-145); UREA NITROGEN, BLOOD 18 mg/dL (7-18)
[2019-03-09] MEDS: IV NS 0.9% 1,000 ML IV PRN ×2 (05:22→18:45)
[2019-03-09 05:25] LABS: GLUCOSE 432 mg/dL (74-106)
[2019-03-09 06:27] LABS: BAND % (MANUAL) 23 % (0.0-5.0); LYMPHOCYTES % (MANUAL) 15 % (16-48); METAMYELOCYTES % 2 % (0-0); MONOCYTES % (MANUAL) 6 % (0-11.0); MYELOCYTES % 1 % (0-0); NEUTROPHILS % (MANUAL) 53 (42-76)
[2019-03-09] MEDS: BLOOD SUGAR DIAGNOSTIC 1 EACH STRIP IN SCH ×4 (06:27→23:54)
[2019-03-09] MEDS ORDERED: POTASSIUM CHLORIDE 20 MEQ POWDER PACKET NG SCH (06:30)
--- NOTE | 2019-03-09 06:30 | NUR ---
RN NOTE: Salvatore Hoskins NP was made aware of the glucose 432 and platelet 42. Patient has no overt bleeding and remained NPO. Salvatore Hoskins NP with no new order. Will endorse to dayshift nurse about these lab results.
--- NOTE | 2019-03-09 07:20 | NUR ---
PRIMARY MILL ROLLER NOTE Received bedside report patient in bed, sedated and intubated with ETT 7.0/22cm@ the lip.No s/s of respiratory distress tolerating vent settings as ordered saturating 97%. No facial grimacing noted. (L) UA PICC line with triple lumen infusing NS@70ml/hr, Diprivan @25mcg/min and Yves@300mcg/min per MD order. CVP monitoring was noted through the (L) UA PICC line. Afebrile @ this time.Continuous rectal temperature monitoring was in placed. Vela catheter draining to gravity with clear yellow urine.Safety and aspiration precautions in place bed in low locked position HOB elevated. Will cont to monitor accordingly
--- NOTE | 2019-03-09 07:22 | NUR ---
RN NOTE: Bedside report was given to Rebekah, STITCHER SPECIAL MACHINE for continuity of care. Patient remained intubated and sedated. On Neosynephrine 300mcg/min and BP has been kept >90mmHg. Good urine output on the bearden catheter was noted. No hematuria noted.
--- NOTE | 2019-03-09 08:38 | NUR ---
lab at bedside unable to redraw pt . will dispatch another tech
[2019-03-09] MEDS: ACETAMINOPHEN 650 MG/20.3 ML UDC NG PRN ×3 (09:17→23:08)
[2019-03-09] MEDS: MULTIVIT W/MINERALS 1 TAB TABLET GT SCH (09:17)
[2019-03-09] MEDS: HYDROGEL DRESSING 90 GM TUBE TP SCH (09:18)
[2019-03-09 09:47] LABS: CALCIUM, SERUM 8.4 mg/dL (8.5-10.1); CARBON DIOXIDE 16 mmol/L (21-32); CHLORIDE 111 mmol/L (98-107); CREATININE 1.6 mg/dL (0.6-1.3); SODIUM SERUM 141 mmol/L (136-145); UREA NITROGEN, BLOOD 21 mg/dL (7-18)
[2019-03-09 09:50] LABS: GLUCOSE 89 mg/dL (74-106)
--- NOTE | 2019-03-09 09:52 | NUR ---
LABS REDRAWN DUE TO BLOOD GLUCOSE DISCREPANCY OF CRITICAL 432 MG/DL POC 78 MG/DL @ 0600 NEW LABS NA 141 K+ 4.0 GLUCOSE 89
[2019-03-09 10:05] LABS: BASOPHILS % (AUTO) 0.2 % (0.0-2.0); EOSINOPHILS % (AUTO) 0.8 % (0.0-6.0); HEMATOCRIT 34 % (33-45); LYMPHOCYTES # (AUTO) 0.7 /CMM (0.8-4.8); LYMPHOCYTES % (AUTO) 18.6 % (20.0-44.0); MEAN CORPUSCULAR HGB CONC 33 g/dl (31.0-36.0); MEAN CORPUSCULAR VOLUME 110 fL (82-100); MONOCYTES # (AUTO) 0.1 /CMM (0.1-1.30); MONOCYTES % (AUTO) 1.7 % (2.0-12.0); NEUTROPHILS % (AUTO) 78.7 % (43.0-81.0); PLATELET COUNT (AUTO) 52 /CMM (150-450); RED BLOOD CELL COUNT(AUTO) 3.04 MIL/uL (4.0-5.2); WHITE BLOOD COUNT (AUTO) 3.8 K/uL (4.3-11.0)
--- NOTE | 2019-03-09 11:15 | NUR ---
Positive for Influenza B . Tamiflu d/c yesterday by md . Per dr zhou restart Tamilfu 75 mg/daily as verified by pharmacy
[2019-03-09 11:32] LABS: BAND % (MANUAL) 18 % (0.0-5.0); LYMPHOCYTES % (MANUAL) 26 % (16-48); METAMYELOCYTES % 1 % (0-0); MONOCYTES % (MANUAL) 7 % (0-11.0); NEUTROPHILS % (MANUAL) 48 (42-76)
[2019-03-09] MEDS: OSELTAMIVIR PHOSPHATE 75 MG CAPSULE PO SCH (13:26)
--- NOTE | 2019-03-09 13:50 | NUR ---
FAMILY VISITING PATIENT. INFORMED AND EDUCATED THE PATIENT POSITIVE FOR INFLUENZA B.
--- NOTE | 2019-03-09 14:30 | NUR ---
BED BATH GIVEN WOUND AND ORAL CARE RENDERED PT TOLERATED
[2019-03-09] MEDS: PROSOURCE / PROSTAT (PYXIS) 30 ML UDC GT SCH (17:16)
--- NOTE | 2019-03-09 18:32 | NUR ---
RT END OF THE SHIFT REPORT, Pt. rec. 78 year old female @0700 AM pt. orally intubated ETT # 7.0 @ 22 cm lip line on ventilator with noted settings. Vent alarms are set and audible with Ambu bag by bedside. NUT ORCHARDIST cuff pressure done, HME changed. Vent is plugged into red outlet. bilaterally rales B/S noted and sux'd for minimal amount of pinky secretions, equal chest rise noted. pt. stable and continue to monitor. NO CHANGES T/O DAY report will pass to PM shift. Addendum: 03/09/19 at 1833 by PRAVEEN UP RT Amended: Links added.
--- NOTE | 2019-03-09 19:16 | NUR ---
RN NOTE: Bedside report was given to [facility] SPONGE PACKER for continuity of care. Patient remained intubated and sedated. On Neosynephrine 240mcg/min and BP has been kept >90mmHg. Good urine output on the bearden catheter was noted. No hematuria noted. Afebrile throughout the shift
[2019-03-10] VITALS (93 sets, daily range): BP systolic 83–122; BP diastolic 19–68
[2019-03-10] MEDS: VANCOMYCIN 0.75 GM in IV D5W 250 ML IV SCH (00:17)
[2019-03-10] MEDS: PIPERACILLIN /TAZOBACTAM 3.375 G in IV D5W 100 ML IV SCH ×3 (02:38→17:01)
[2019-03-10 04:35] LABS: BASOPHILS % (AUTO) 0.6 % (0.0-2.0); EOSINOPHILS % (AUTO) 1.3 % (0.0-6.0); HEMATOCRIT 26 % (33-45); HEMOGLOBIN 8.6 g/dL (11.5-14.8); LYMPHOCYTES # (AUTO) 0.6 /CMM (0.8-4.8); LYMPHOCYTES % (AUTO) 16.4 % (20.0-44.0); MEAN CORPUSCULAR HGB CONC 33 g/dl (31.0-36.0); MEAN CORPUSCULAR VOLUME 109 fL (82-100); MONOCYTES % (AUTO) 0.2 % (2.0-12.0); NEUTROPHILS # (AUTO) 3.2 /CMM (1.8-8.9); NEUTROPHILS % (AUTO) 81.5 % (43.0-81.0); RED BLOOD CELL COUNT(AUTO) 2.38 MIL/uL (4.0-5.2); WHITE BLOOD COUNT (AUTO) 3.9 K/uL (4.3-11.0)
[2019-03-10 04:52] LABS: CALCIUM, SERUM 8.3 mg/dL (8.5-10.1); CARBON DIOXIDE 18 mmol/L (21-32); CHLORIDE 111 mmol/L (98-107); CREATININE 1.5 mg/dL (0.6-1.3); GLUCOSE 112 mg/dL (74-106); PHOSPHORUS 2.3 mg/dL (2.5-4.9); POTASSIUM 3.6 mmol/L (3.5-5.1); SODIUM SERUM 141 mmol/L (136-145); UREA NITROGEN, BLOOD 21 mg/dL (7-18)
[2019-03-10 05:21] LABS: PLATELET COUNT (AUTO) 39 /CMM (150-450)
[2019-03-10] MEDS: BLOOD SUGAR DIAGNOSTIC 1 EACH STRIP IN SCH ×3 (06:30→17:11)
[2019-03-10] MEDS: PROPOFOL 100 ML IV PRN ×2 (06:31→17:01)
--- NOTE | 2019-03-10 07:00 | NUR ---
RN NOTES RECEIVED PT ON BED, INTUBATED AND SEDATED, TOLERATING CURRENT VENT SETTING WELL, O2 SAT WNL, ON TELE ST HR IN 100'S, MIRANDA DRAINING TO GRAVITY WITH CLEAR YELLOW URINE, GT CLAMPED AT THIS TIME, L UPPER ARM PICC LINE SITE CLEAN, DRY AND INTACT, WITH DIPRIVAN AT 20 MCG/KG/MIN , MARIBELL AT 80 MCG/MIN AND NS AT 70CC/HR RUNNING , SR UP x3, CALL LIGHT WITHIN EASY REACH, BED LOCKED AND IN LOWEST POSITION, CONTINUE TO MONITOR.
[2019-03-10] MEDS: OSELTAMIVIR PHOSPHATE 75 MG CAPSULE PO SCH (08:33)
[2019-03-10] MEDS: MULTIVIT W/MINERALS 1 TAB TABLET GT SCH (08:33)
[2019-03-10] MEDS: HYDROGEL DRESSING 90 GM TUBE TP SCH (08:34)
[2019-03-10] MEDS: PHENYLEPHRINE 80 MG in IV D5W 250 ML IV PRN (09:54)
[2019-03-10] MEDS: IV NS 0.9% 1,000 ML IV PRN (09:55)
[2019-03-10] MEDS ORDERED: Sodium Phosphate 15 MMOL in IV D5W 250 ML IV ONE (12:30)
[2019-03-10] MEDS: POTASSIUM PHOSPHATE MM 7.5 MMOL in IV D5W 100 ML IV SCH ×2 (12:58→16:03)
--- NOTE | 2019-03-10 13:34 | NUR ---
RN NOTES SPOKEN TO ENRIQUETA (PT'S DAUGHTER ) ON THE PHONE AND SHE REFUSED TO GIVE CONSENT FOR SERIAL DEBRIDEMENT OF SACRUM , SHE STATED THAT SHE WANTS TO WAIT AT THIS TIME .
[2019-03-10] MEDS: GLUCERNA 1.2 1,000 ML BOTTLE NG PRN (15:50)
--- NOTE | 2019-03-10 16:00 | NUR ---
RN NOTES VSS STABLE, PT TOLERATING TF WELL CONTINUE TO MONITOR
[2019-03-10] MEDS: PROSOURCE / PROSTAT (PYXIS) 30 ML UDC GT SCH (17:01)
--- NOTE | 2019-03-10 18:17 | NUR ---
Pt. rec. 78 year old female @0700 AM pt. orally intubated ETT # 7.0 @ 22 cm lip line on ventilator with noted settings. Vent alarms are set and audible with Ambu bag by bedside. INSOLE TOE SNIPPING MACHINE OPERATOR cuff pressure done, HME changed. Vent is plugged into red outlet. bilaterally rales B/S noted and sux'd for minimal amount of hamilton/pinky secretions, equal chest rise noted. pt. stable and continue to monitor. report will pass to PM shift. Addendum: 03/10/19 at 1817 by PRAVEEN UP RT Amended: Links added.
--- NOTE | 2019-03-10 18:28 | NUR ---
RN NOTES PT REMANS INTUBATED, AND SEDATED, ORAL AND ETT CARE DONE, PT ON DIPRIVAN AT 25 MCG/KG/MIN , MARIBELL AT 60 MCG/MIN AND NS AT 70CC/HR RUNNING VIA R UPPER ARM PICC LINE , SR UP x3, CALL LIGHT WITHIN EASY REACH, BED LOCKED AND IN LOWEST POSITION, CONTINUE TO MONITOR.
--- NOTE | 2019-03-10 20:00 | NUR ---
RADIOISOTOPE TECHNOLOGIST - NOTES - RECEIVED PT ON BED, INTUBATED AND SEDATED, TOLERATING CURRENT VENT SETTING WELL, O2 SAT WNL, ON TELE ST HR IN 110'S, MIRANDA DRAINING TO GRAVITY WITH CLEAR YELLOW URINE, GTF INFUSING AT THIS TIME, L UPPER ARM MIDLINE, RIGHT UPPER ARM PICC LINE SITE CLEAN, DRY AND INTACT, WITH DIPRIVAN AT 25 MCG/KG/MIN , MARIBELL AT 60 MCG/MIN AND NS AT 70CC/HR RUNNING , SR UP x3, CALL LIGHT WITHIN EASY REACH, BED LOCKED AND IN LOWEST POSITION, CONTINUE TO MONITOR.
[2019-03-10] MEDS: ACETAMINOPHEN 650 MG/20.3 ML UDC NG PRN (20:47)
[2019-03-10] MEDS: MEROPENEM 500 MG in IV NS 0.9% 50 ML IV SCH (20:47)
[2019-03-10 21:35] LABS: D-DIMER 2.36 mg/L(FEU (0.17-0.50)
--- NOTE | 2019-03-10 23:00 | NUR ---
FIBRINOGEN LEVEL UNABLE TO BE RESULTED BY OUR LAB, SPECIMEN SENT OUT TO [facility], AWAITING RESULTS
[2019-03-11] VITALS (89 sets, daily range): BP systolic 89–137; BP diastolic 18–71
[2019-03-11] MEDS: BLOOD SUGAR DIAGNOSTIC 1 EACH STRIP IN SCH ×4 (00:45→17:34)
[2019-03-11] MEDS: VANCOMYCIN 0.75 GM in IV D5W 250 ML IV SCH (00:45)
[2019-03-11] MEDS: IV NS 0.9% 1,000 ML IV PRN ×2 (03:11→17:42)
[2019-03-11] MEDS: PROPOFOL 100 ML IV PRN ×3 (03:24→22:26)
[2019-03-11 04:49] LABS: BASOPHILS % (AUTO) 0.6 % (0.0-2.0); EOSINOPHILS % (AUTO) 0.5 % (0.0-6.0); HEMATOCRIT 26 % (33-45); HEMOGLOBIN 8.6 g/dL (11.5-14.8); LYMPHOCYTES # (AUTO) 0.6 /CMM (0.8-4.8); LYMPHOCYTES % (AUTO) 8.8 % (20.0-44.0); MEAN CORPUSCULAR HGB CONC 33 g/dl (31.0-36.0); MEAN CORPUSCULAR VOLUME 110 fL (82-100); MONOCYTES % (AUTO) 0.3 % (2.0-12.0); NEUTROPHILS # (AUTO) 6.6 /CMM (1.8-8.9); NEUTROPHILS % (AUTO) 89.8 % (43.0-81.0); RED BLOOD CELL COUNT(AUTO) 2.34 MIL/uL (4.0-5.2); WHITE BLOOD COUNT (AUTO) 7.4 K/uL (4.3-11.0)
[2019-03-11 05:02] LABS: CALCIUM, SERUM 8.4 mg/dL (8.5-10.1); CARBON DIOXIDE 18 mmol/L (21-32); CHLORIDE 112 mmol/L (98-107); CREATININE 1.4 mg/dL (0.6-1.3); GLUCOSE 170 mg/dL (74-106); PHOSPHORUS 3.6 mg/dL (2.5-4.9); POTASSIUM 3.7 mmol/L (3.5-5.1); SODIUM SERUM 140 mmol/L (136-145); UREA NITROGEN, BLOOD 25 mg/dL (7-18)
[2019-03-11 05:37] LABS: PLATELET COUNT (AUTO) 31 /CMM (150-450)
[2019-03-11 05:39] LABS: LYMPHOCYTES % (MANUAL) 4 % (16-48); MONOCYTES % (MANUAL) 1 % (0-11.0); NEUTROPHILS % (MANUAL) 95 (42-76)
[2019-03-11] MEDS: INSULIN REGULAR, HUMAN 100 UNIT/ML 3 ML VIAL SQ PRN ×2 (06:36→12:22)
--- NOTE | 2019-03-11 06:45 | NUR ---
PT REMANS INTUBATED, AND SEDATED, ORAL AND ETT CARE DONE. FULL CHG BED BATH GIVEN. PT ON DIPRIVAN AT 25 MCG/KG/MIN , MARIBELL AT 20 MCG/MIN AND NS AT 70CC/HR RUNNING VIA R UPPER ARM PICC LINE , SR UP x3, CALL LIGHT WITHIN EASY REACH, BED LOCKED AND IN LOWEST POSITION, STILL AWAITING FIBRINOGEN LEVEL
--- NOTE | 2019-03-11 07:00 | NUR ---
RN NOTES RECEIVED PT ON BED, INTUBATED AND SEDATED, TOLERATING CURRENT VENT SETTING WELL, O2 SAT WNL, ON TELE ST HR IN 100'S, MIRANDA DRAINING TO GRAVITY WITH TEA COLOR URINE, 120C GT RESIDUAL NOTED, GT FEEDING DECREASED TO 30CC/HR AT THIS TIME, WILL NOTIFED Liset LOCKETT UPPER ARM PICC LINE SITE CLEAN, DRY AND INTACT, WITH DIPRIVAN AT 25 MCG/KG/MIN , MARIBELL AT 20 MCG/MIN AND NS AT 70CC/HR RUNNING , SR UP x3, CALL LIGHT WITHIN EASY REACH, BED LOCKED AND IN LOWEST POSITION, CONTINUE TO MONITOR.
--- NOTE | 2019-03-11 07:05 | NUR ---
CORRECTION PT HAS L UPPER ARM MIDLINE AND R UPPER ARM PICC LINE, SITE CLEAN, DRY AND INTACT
--- NOTE | 2019-03-11 07:55 | NUR ---
RT PATIENT REC'D ORALLY INTUBATED ON MECH VENT. ALARMS CHECKED + AUDIBLE. EVY BAG AT HOB. Addendum: 03/11/19 at 1638 by HOLLEY TORRES RT Amended: Links added.
[2019-03-11 08:06] LABS: *SPE A/G RATIO 0.5 (0.7-1.7); *SPE ALBUMIN 1.7 g/dL (2.9-4.4); *SPE ALPHA-1-GLOBULIN 0.3 g/dL (0.0-0.4); *SPE ALPHA-2-GLOBULIN 0.5 g/dL (0.4-1.0); *SPE BETA GLOBULIN 1.1 g/dL (0.7-1.3); *SPE GLOBULIN, TOTAL 3.2 g/dL (2.2-3.9); *SPE M-SPIKE Not Observed g/dL (Not Observed); *SPEGAMMA GLOBULIN 1.2 g/dL (0.4-1.8)
[2019-03-11] MEDS: MULTIVIT W/MINERALS 1 TAB TABLET GT SCH (08:22)
[2019-03-11] MEDS: HYDROGEL DRESSING 90 GM TUBE TP SCH (08:22)
[2019-03-11] MEDS: OSELTAMIVIR PHOSPHATE 75 MG CAPSULE PO SCH (08:22)
[2019-03-11] MEDS: MEROPENEM 500 MG in IV NS 0.9% 50 ML IV SCH ×2 (08:24→21:45)
[2019-03-11 08:26] LABS: ABG BASE EXCESS -10.7 mmol/L; ABG OXYGEN SATURATION 92.4 % (92.0-98.5); ABG PCO2 38.8 mmHg (35.0-45.0); ABG PH 7.233 (7.350-7.450); ABG PO2 69.9 mmHg (75.0-100.0); AaDO2 315.2 mmHg; COHb 0.3 % (0.5-1.5); MetHb 0.5 % (0.0-1.5); O2Hb 91.7 % (94.0-97.0); PEEP,BG 5 cm H2O; SITE, ABG Left Radial; VT, ABG 450 mL
--- NOTE | 2019-03-11 12:00 | NUR ---
RN NOTES ORAL AND ET TUBE SUCTIONING DONE,PT HAS 80CC TF RESIDUAL , TF AT 30CC/HR , CONTINUE TO MONITOR .
[2019-03-11 12:06] LABS: PTH, INTACT 918 pg/mL (15-65)
--- NOTE | 2019-03-11 14:30 | NUR ---
RN NOTES VSS STABLE, PT OFF MARIBELL GTT, CONTINUE TO MONITOR .
--- NOTE | 2019-03-11 17:30 | NUR ---
RN NOTES DR MYLES AND ARPIT GUEST ATTENDANT NOITFED REGARDING FIBRINOGEN 798 , NO NEW ORDER RECEIVED .
[2019-03-11] MEDS: PROSOURCE / PROSTAT (PYXIS) 30 ML UDC GT SCH (17:33)
--- NOTE | 2019-03-11 18:00 | NUR ---
RN NOTES PT REMAINS INTUBATED, DIPRIVAN T 25MCG/KG/MIN , NS AT 70CC/HR RUNNING , TF AT 30CC/HR , RUBEN DRINING TO GRAVITY, NO SIGNIFICANT CHANGES NOTED ON THIS SHIFT, SR UP x3, CALL LIGHT WITHIN EASY REACH, BED LOCKED AND IN LOWEST POSITION, WILL ENDORSE TO TOBACCO BALER NURSE FOR CONTINUITY OF CARE.
--- NOTE | 2019-03-11 19:00 | NUR ---
RECEIVED PATIENT ORALLY INTUBATED ON THE VENTILATOR ON AC MODE,SEDATED ON PROPOFOL DRIP, AROUSABLE,RESPONDS TO PAIN,BLINKS EYES ,GRIMACES,+ WEAK COUGH WHEN SUCTIONED. TACHYPNEIC ,BREATHING SLIGHTLY LABORED WITH DEEP INSPIRATORY EFFORT(WILL TITRATE pROPOFOL IF BECOMES MORE TACHYPNEIC.+ GENERALIZED EDEMA,ARTHUR PICC LINE,LUDIN MIDLINE. WITH ON GOING FEEDING VIA G- TUBE. COMFORT CARE DONE,SKIN CARE DONE.
--- NOTE | 2019-03-11 21:30 | NUR ---
DESATURATING DOWN 87-88%. SUCTIONED, NOT MUCH SECRETIONS , FIO2 INCREASED TO 100 BY RESP.THERAPIST.SAUTRATION IMPROVED UP TO 94 %.WILL CLOSELY MONITOR.
[2019-03-12] VITALS (92 sets, daily range): BP systolic 74–132; BP diastolic 31–74
--- NOTE | 2019-03-12 | NUR ---
REMAINS CRITICAL, STILL TACHYPNEIC WITH LABORED DEEP INSPIRATORY EFFORT.BP REMAINS STABLE, STILL OFF PRESSORS.
[2019-03-12] MEDS: VANCOMYCIN 0.75 GM in IV D5W 250 ML IV SCH (00:03)
[2019-03-12] MEDS: BLOOD SUGAR DIAGNOSTIC 1 EACH STRIP IN SCH ×4 (00:19→17:29)
[2019-03-12] MEDS: GLUCERNA 1.2 1,000 ML BOTTLE NG PRN (01:31)
--- NOTE | 2019-03-12 03:00 | NUR ---
DESATURATING LOW 86 % AFTER AM BATH/AFTER TURNING AND MOVING.NOTED TO DESATURATE WHEN PATIENT IS TURNED TO THE RIGHT SIDE..PLACED BACK ON FLAT POSITION.FEEDING STILL WITH HIGH RESIDUALS,WILL MAINTAIN AT 30 ML/HR FOR NOW (GOAL =65 ML/HR)
[2019-03-12] MEDS: PROPOFOL 100 ML IV PRN ×3 (04:41→18:28)
[2019-03-12 04:46] LABS: BASOPHILS # (AUTO) 0.1 /CMM (0.0-0.2); BASOPHILS % (AUTO) 0.6 % (0.0-2.0); EOSINOPHILS % (AUTO) 0.3 % (0.0-6.0); HEMATOCRIT 28 % (33-45); HEMOGLOBIN 9.1 g/dL (11.5-14.8); LYMPHOCYTES % (AUTO) 9.8 % (20.0-44.0); MEAN CORPUSCULAR HGB CONC 33 g/dl (31.0-36.0); MEAN CORPUSCULAR VOLUME 111 fL (82-100); MONOCYTES % (AUTO) 0.2 % (2.0-12.0); NEUTROPHILS # (AUTO) 9.4 /CMM (1.8-8.9); NEUTROPHILS % (AUTO) 89.1 % (43.0-81.0); RED BLOOD CELL COUNT(AUTO) 2.51 MIL/uL (4.0-5.2); WHITE BLOOD COUNT (AUTO) 10.5 K/uL (4.3-11.0)
[2019-03-12 04:49] LABS: PLATELET COUNT (AUTO) 37 /CMM (150-450)
[2019-03-12 05:03] LABS: CALCIUM, SERUM 8.9 mg/dL (8.5-10.1); CARBON DIOXIDE 19 mmol/L (21-32); CHLORIDE 111 mmol/L (98-107); CREATININE 1.5 mg/dL (0.6-1.3); GLUCOSE 171 mg/dL (74-106); MAGNESIUM 2.1 mg/dL (1.8-2.4); PHOSPHORUS 4.4 mg/dL (2.5-4.9); SODIUM SERUM 140 mmol/L (136-145); UREA NITROGEN, BLOOD 30 mg/dL (7-18)
[2019-03-12 05:38] LABS: BAND % (MANUAL) 14 % (0.0-5.0); LYMPHOCYTES % (MANUAL) 16 % (16-48); MONOCYTES % (MANUAL) 5 % (0-11.0); NEUTROPHILS % (MANUAL) 65 (42-76)
[2019-03-12 05:47] LABS: D-DIMER 3.32 mg/L(FEU (0.17-0.50)
--- NOTE | 2019-03-12 07:00 | NUR ---
remains sedated,tachypneic with labored breathing ,saturating 91-92 % with FIO2 of 90 %. Closely monitor BP, follow up DIC work up result.Report given to Orquidea FRANCOIS
--- NOTE | 2019-03-12 07:15 | NUR ---
MODEL TECHNICIAN OPENING NOTE RECEIVED REPORT FROM PM NURSE. PATIENT ORALLY INTUBATED WITH 09/16@LIP LEVEL.PINK TINGED SECRETIONS FROM ETT. ON THE VENTILATOR WITH FULL SUPPORT. SEDATED ,ON PROPOFOL DRIP, AROUSABLE,RESPONDS TO PAIN. ON TELE MONITOR ST HR 112. GENERALIZED EDEMA,ARTHUR PICC LINE,LUDIN MIDLINE. GT FEEDING .WILL MONITOR FOR RESIDUAL.HAS MIRANDA CATH.DRAINING DARK YELLOW URINE.SAFETY AND ASPIRATION MEASURES IN PLACE.BED IS LOW AND IN LOCKED POSITION.CALL LIGHT IN REACH.BED ALARM ON.SRX3.WILL CONTINUE TO MONITOR.
[2019-03-12] MEDS: IV NS 0.9% 1,000 ML IV PRN ×2 (07:59→23:17)
[2019-03-12] MEDS: MEROPENEM 500 MG in IV NS 0.9% 50 ML IV SCH ×2 (08:05→20:46)
[2019-03-12] MEDS: MULTIVIT W/MINERALS 1 TAB TABLET GT SCH (08:06)
[2019-03-12] MEDS: OSELTAMIVIR PHOSPHATE 75 MG CAPSULE PO SCH (08:06)
[2019-03-12] MEDS: HYDROGEL DRESSING 90 GM TUBE TP SCH (08:09)
[2019-03-12] MEDS: PHENYLEPHRINE 80 MG in IV D5W 250 ML IV PRN ×3 (09:56→22:56)
[2019-03-12 11:09] LABS: COHb 0.3 % (0.5-1.5)
--- NOTE | 2019-03-12 11:15 | NUR ---
INJECTION MOLD TOOLING TECHNICIAN NOTE SEEN BY LATASHA SHAH.UPDATED ABOUT PATIENT CONDITION.MADE AWARE REQUEST FROM DAUGHTER TO CALL HER WHILE MD ON ROUNDS.LATASHA SHAH SPOKE TO DAUGHTER .WILL CONTINUE TO MONITOR.
--- NOTE | 2019-03-12 11:31 | NUR ---
SLIP FILLER NOTE ABG RESULT TO RELAYED TO .GOT NEW ORDER TO INCREASE TV 600 AND RR TO 27 AND ABG AFTER 2HR.RT ISAK MADE AWARE.WILL CONTINUE TO MONITOR.
[2019-03-12] MEDS: NOREPINEPHRINE 16 MG in IV D5W 500 ML IV PRN (13:46)
[2019-03-12 13:53] LABS: ABG BASE EXCESS -12.5 mmol/L; ABG OXYGEN SATURATION 91.7 % (92.0-98.5); ABG PCO2 29.4 mmHg (35.0-45.0); ABG PH 7.268 (7.350-7.450); ABG PO2 63.1 mmHg (75.0-100.0); AaDO2 548.5 mmHg; MetHb 0.4 % (0.0-1.5); O2Hb 91.1 % (94.0-97.0); PEEP,BG 5 cm H2O; SITE, ABG Right Radial; VT, ABG 600 mL
--- NOTE | 2019-03-12 13:57 | NUR ---
BACK OFFICE MEDICAL ASSISTANT NOTE SEEN BY .UPDATED ABOUT PATIENT CONDITION WITH LABS.MADE AWARE ABOUT D DIMER AND FIBRINOGEN LEVEL.SPOKE TO THE PATIENT DAUGHTER.NO NEW CHANGES.WILL CONTINUE SAME TREATMENT .WILL CONTINUE TO MONITOR.
--- NOTE | 2019-03-12 14:17 | NUR ---
ADVANCED SEAL DELIVERY SYSTEM NOTE PATIENT VERY UNSTABLE TO TURN AND REPOSITION Q2H.DESATURATES EASILY ON VENT WITH FULL SUPPORT.BP IS UNSTABLE .ON MARIBELL AND LEVO.WILL CONTINUE TO MONITOR.
[2019-03-12] MEDS: ACETAMINOPHEN 650 MG/20.3 ML UDC NG PRN (15:17)
[2019-03-12] MEDS: PROSOURCE / PROSTAT (PYXIS) 30 ML UDC GT SCH (17:29)
--- NOTE | 2019-03-12 19:00 | NUR ---
BLASTING MACHINE OPERATOR NOTE PATIENT DAUGHTERS CAME AND TOLD NURSE THEY WANT TO CHANGE THER MOM'S RESUSCITATION STATUS.THEY DO NOT WANT TO RESUSCITATE HER IF HER HEART STOP.SPOKE TO SON DEANDRA IN PERSON AT BED SIDE.HE SAID HIS SISTERS IS MAKING DECISIONS FOR HER.HE IS OK WITH DECISION FOR DNR/DNI.SPOKE TO DAUGHTERS IN PERSON ENRIQUETA AND DARSHAN.ENRIQUETA SIGNED POLST.SLAB LIFTING SUPERVISOR ALYSSA MADE AWARE.CARRIED OUT NEW ORDERS.WILL CONTINUE TO MONITOR.
--- NOTE | 2019-03-12 19:10 | NUR ---
RN OPENING NOTES RECEIVED PATIENT IN BED SEDATED, ORALLY INTUBATED WITH 09/16 AT LIP LEVEL; MECHANICAL VENTILATOR WITH SETTINGS AC 28, TV 600, FIO2 100, PEEP 12; SATURATING 98% AT THE MOMENT. NO SOB OR RESPIRATORY DISTRESS NOTED. ON PROPOFOL DRIP AT 30MCG, LEVO AT 2MCG, AND MARIBELL AT 240MCG. ON GOING IVF NS AT 70ML/HR. SBP 90'S. ON TELE MONITOR ST HR 110'S. GENERALIZED EDEMA NOTED. IV SITES ARTHUR PICC LINE, LUDIN MIDLINE, BOTH INTACT AND PATENT, SITES C/D/I. GT FEEDING ON HOLD FOR INCREASED RESIDUAL, CURRENTLY 200ML. MIRANDA CATH INTACT AND DRAINING DARK YELLOW URINE. ISOLATION PRECAUTION AND ASPIRATION MEASURES NOTED IN PLACE, SAFETY MEASURES IN PLACE; BED IS LOW AND IN LOCKED POSITION, CALL LIGHT IN REACH, BED ALARM ON, SRX3, HOB ELEVATED. WILL CONT TO MONITOR PT CLOSELY.
--- NOTE | 2019-03-12 19:22 | NUR ---
PT RCVD ORALLY INTUBATED WITH ETT 7.0 SECURED@ 22 CM LIPLINE. SX DONE . VENT PLUGGED INTO RED OUTLET, VENT ALARMS ON AND AUDIBLE. AMBU BAG AT BEDSIDE. EQUAL CHEST RISE NOTED. NO RESPIRATORY DISTRESS NOTED AT THIS TIME. WILL CONTINUE TO MONITOR
--- NOTE | 2019-03-12 19:33 | NUR ---
ACUTE CARE NURSE PRACTITIONER CLOSING NOTE PATIENT ORALLY INTUBATED WITH 09/16@LIP LEVEL.PINK TINGED SECRETIONS FROM ETT. ON THE VENTILATOR WITH FULL SUPPORT. SEDATED ,ON PROPOFOL DRIP,NOM RESPONDS. ON TELE MONITOR ST HR 116. GENERALIZED EDEMA,ARTHUR PICC LINE,LUDIN MIDLINE. GT FEEDING HOLD FOR INCREASED RESIDUAL..HAS MIRANDA CATH.DRAINING DARK YELLOW URINE.SAFETY AND ASPIRATION MEASURES IN PLACE.BED IS LOW AND IN LOCKED POSITION.CALL LIGHT IN REACH.BED ALARM ON.SRX3.ENDORSED TO PM NURSE FOR JOSE GUADALUPE.
--- NOTE | 2019-03-12 22:34 | NUR ---
RN NOTES PATIENT GTF RESIDUAL STILL 200ML DESPITE HOLDING GTF SINCE 1999. HOSPITALIST MADE AWARE AND ORDERED TO CONTINUE HOLDING GTF. WILL ATTEND TO ORDER. WILL CONT TO MONITOR PT CLOSELY.
[2019-03-13] VITALS (95 sets, daily range): BP systolic 79–132; BP diastolic 30–78
--- NOTE | 2019-03-13 | NUR ---
RN NOTES PATIENT CORE TEMP 100.1, PATIENT WARM TO TOUCH. PRN TYLENOL GIVEN, COOLING MEASURES IN PLACE. WILL CONT TO MONITOR CLOSELY.
[2019-03-13] MEDS: VANCOMYCIN 0.75 GM in IV D5W 250 ML IV SCH (00:11)
[2019-03-13] MEDS: ACETAMINOPHEN 650 MG/20.3 ML UDC NG PRN (00:21)
[2019-03-13] MEDS: BLOOD SUGAR DIAGNOSTIC 1 EACH STRIP IN SCH ×4 (00:30→17:29)
[2019-03-13] MEDS: INSULIN REGULAR, HUMAN 100 UNIT/ML 3 ML VIAL SQ PRN ×4 (00:36→17:33)
[2019-03-13] MEDS: PHENYLEPHRINE 80 MG in IV D5W 250 ML IV PRN ×4 (04:04→21:29)
[2019-03-13] MEDS: PROPOFOL 100 ML IV PRN ×4 (04:06→21:45)
[2019-03-13 05:14] LABS: BASOPHILS # (AUTO) 0.1 /CMM (0.0-0.2); BASOPHILS % (AUTO) 0.8 % (0.0-2.0); EOSINOPHILS % (AUTO) 0.7 % (0.0-6.0); HEMATOCRIT 28 % (33-45); LYMPHOCYTES # (AUTO) 1.1 /CMM (0.8-4.8); LYMPHOCYTES % (AUTO) 8.3 % (20.0-44.0); MEAN CORPUSCULAR HGB CONC 33 g/dl (31.0-36.0); MEAN CORPUSCULAR VOLUME 110 fL (82-100); MONOCYTES % (AUTO) 0.3 % (2.0-12.0); NEUTROPHILS # (AUTO) 11.4 /CMM (1.8-8.9); NEUTROPHILS % (AUTO) 89.9 % (43.0-81.0); RED BLOOD CELL COUNT(AUTO) 2.49 MIL/uL (4.0-5.2); WHITE BLOOD COUNT (AUTO) 12.7 K/uL (4.3-11.0)
[2019-03-13 05:26] LABS: CALCIUM, SERUM 8.9 mg/dL (8.5-10.1); CARBON DIOXIDE 16 mmol/L (21-32); CHLORIDE 109 mmol/L (98-107); CREATININE 1.8 mg/dL (0.6-1.3); GLUCOSE 199 mg/dL (74-106); MAGNESIUM 2.1 mg/dL (1.8-2.4); POTASSIUM 4.1 mmol/L (3.5-5.1); SODIUM SERUM 137 mmol/L (136-145); UREA NITROGEN, BLOOD 36 mg/dL (7-18)
[2019-03-13 05:45] LABS: PLATELET COUNT (AUTO) 35 /CMM (150-450)
[2019-03-13 06:10] LABS: BAND % (MANUAL) 8 % (0.0-5.0); LYMPHOCYTES % (MANUAL) 16 % (16-48); MONOCYTES % (MANUAL) 4 % (0-11.0); NEUTROPHILS % (MANUAL) 72 (42-76)
--- NOTE | 2019-03-13 07:00 | NUR ---
RN CLOSING NOTES PATIENT IN BED SEDATED, ORALLY INTUBATED WITH 09/16 AT LIP LEVEL; MECHANICAL VENTILATOR WITH SETTINGS ORDERED, SATURATING 100% AT THE MOMENT. PATIENT AFEBRILE. ON PROPOFOL DRIP AT 20MCG, LEVO AT 2MCG, AND MARIBELL AT 240MCG. ON GOING IVF NS AT 70ML/HR. SBP 100'S. ON TELE MONITOR ST HR 110'S. IV SITES ARTHUR PICC LINE, LUDIN MIDLINE, BOTH INTACT AND PATENT, SITES C/D/I. GT FEEDING STILL ON HOLD FOR INCREASED RESIDUAL, LAST CHECKED 150ML. MIRANDA CATH INTACT AND DRAINING DARK YELLOW URINE. ISOLATION PRECAUTION AND ASPIRATION MEASURES NOTED IN PLACE, SAFETY MEASURES IN PLACE; BED IS LOW AND IN LOCKED POSITION, CALL LIGHT IN REACH, BED ALARM ON, SRX3, HOB ELEVATED. ENDORSED TO AM RN FOR JOSE GUADALUPE.
--- NOTE | 2019-03-13 07:10 | NUR ---
CALL CENTER OPERATIONS MANAGER INITIAL NOTES Rec'd pt on bed, sedated. On MV via ETT, sating at 100% but tachypneic. ST on telemonitor. Has ARTHUR PICC line w/ NS x 70cc/hr, Levophed drip x 2 mcg & Yves drip x 240 mcg infusing well. Has LUDIN midline, SL. Has GT clamped at this time. Has FC draining to adequate yellowish UOP. On isolation prec. Safety prec in place w/ bed in lowest & locked pos. Call light w/in reach. Will cont to monitor & attend pt needs.
--- NOTE | 2019-03-13 08:00 | NUR ---
Pt seen & examined by Dr. Pena.
[2019-03-13] MEDS: HYDROGEL DRESSING 90 GM TUBE TP SCH (08:22)
[2019-03-13] MEDS: MEROPENEM 500 MG in IV NS 0.9% 50 ML IV SCH ×2 (08:22→21:17)
[2019-03-13] MEDS: MULTIVIT W/MINERALS 1 TAB TABLET GT SCH (08:22)
[2019-03-13 08:46] LABS: ABG BASE EXCESS -15.8 mmol/L; ABG OXYGEN SATURATION 94.4 % (92.0-98.5); ABG PCO2 27.5 mmHg (35.0-45.0); ABG PH 7.207 (7.350-7.450); AaDO2 599.5 mmHg; COHb 0.3 % (0.5-1.5); MetHb 0.7 % (0.0-1.5); O2Hb 93.5 % (94.0-97.0); PEEP,BG 12 cm H2O; SITE, ABG Right Radial
--- NOTE | 2019-03-13 08:59 | NUR ---
G reviewed by Dr. Barrow w/ orders to change current IVF w/ D5W + 3 amps of Na Acetate x 70cc/hr. Addendum: 03/13/19 at 1245 by ARA SHAFER RN Addendum: Per Dr. Barrow, may start on Reglan 10mg q6h via GT.
--- NOTE | 2019-03-13 10:15 | NUR ---
Pt seen & examined by Tracy LOMBARDI. Wound reassessed.
[2019-03-13] MEDS: Sodium Acetate 150 MEQ in IV D5W 1,000 ML IV PRN (10:50)
[2019-03-13] MEDS ORDERED: METOCLOPRAMIDE HCL 10 MG/2 ML VIAL IV SCH (11:00)
--- NOTE | 2019-03-13 11:20 | NUR ---
Pt seen & examined by Isa PAGAN, updated about pt status. Addendum: 03/13/19 at 1244 by ARA SHAFER RN Addendum: STONE POLISHER HAND was able to speak w/ pt's family Gloriette at bedside re: POC.
--- NOTE | 2019-03-13 11:20 | NUR ---
Re: A-line insertion - per LATASHA Moss, she already informed Dr. Reddy.
[2019-03-13] MEDS ORDERED: METOCLOPRAMIDE HCL 10 MG/10 ML UDC GT SCH (12:00)
[2019-03-13] MEDS: METOCLOPRAMIDE HCL 10 MG/10 ML UDC GT SCH ×3 (12:11→23:42)
[2019-03-13] MEDS: Z GUARD REMEDY 2 OZ OINT TP SCH ×2 (15:36→21:12)
--- NOTE | 2019-03-13 16:42 | NUR ---
Per Dr. Barrow, start pt on Tamiflu 75 mg via GT BID.
[2019-03-13] MEDS ORDERED: OSELTAMIVIR PHOSPHATE 75 MG CAPSULE GT SCH (17:00)
[2019-03-13] MEDS: PROSOURCE / PROSTAT (PYXIS) 30 ML UDC GT SCH (17:29)
[2019-03-13 17:35] LABS: CARBON DIOXIDE 15 mmol/L (21-32); CHLORIDE 101 mmol/L (98-107); CREATININE 1.6 mg/dL (0.6-1.3); POTASSIUM 3.7 mmol/L (3.5-5.1); SODIUM SERUM 135 mmol/L (136-145); UREA NITROGEN, BLOOD 36 mg/dL (7-18)
[2019-03-13 17:57] LABS: GLUCOSE 447 mg/dL (74-106)
[2019-03-13] MEDS ORDERED: LORAZEPAM INJ 2 MG/ML VIAL IV PRN (18:30)
--- NOTE | 2019-03-13 18:31 | NUR ---
Dr. Barrow made aware that pt remains tachypneic RR 30's, sats at 88%, on Diprivan x 50 mcg/kg/min. Per MD, may increase Diprivan to 100 mcg/kg/min & start Ativan 1mg IVP q1h PRN.
--- NOTE | 2019-03-13 19:00 | NUR ---
RN OPENING NOTES RECEIVED PATIENT IN BED SEDATED, ORALLY INTUBATED WITH MECHANICAL VENTILATOR WITH SETTINGS AC 28, TV 600, FIO2 100, PEEP OF 12, SATURATING 96-98% AT THE MOMENT. ON PROPOFOL DRIP AT 50MCG, MARIBELL AT 250MCG, AND D5W WITH NA ACETATE 70ML/HR. ALL INFUSING WELL. ON TELE MONITOR ST HR 100'S. IV SITES ARTHUR PICC LINE AND LUDIN MIDLINE, BOTH INTACT AND PATENT, SITES C/D/I. GT FEEDING RUNNING AT 30ML/HR BUT PLACED ON HOLD D/T RESIDUAL >200ML, WILL RECHECK IN 2HRS. MIRANDA CATH INTACT AND DRAINING YELLOW URINE NOTED. ISOLATION PRECAUTION AND ASPIRATION MEASURES NOTED IN PLACE, SAFETY MEASURES IN PLACE; BED IS LOW AND IN LOCKED POSITION, CALL LIGHT WITHIN REACH, BED ALARM ON, SRX3, HOB ELEVATED. WILL CONT TO MONITOR PT CLOSELY.
--- NOTE | 2019-03-13 19:00 | NUR ---
CARGO BRACER CLOSING NOTES Pt remains sedated on Diprivan 50 mcg. Pt now sating 98% after giving Ativan 1mg IVP PRN. ST on telemonitor. ARTHUR PICC line kept patent & intact w/ D5W + Na acetate 150 meqs x 70cc/hr & Yves drip x 250 mcg infusing well. Has LUDIN midline, SL. Tolerating Glucerna 1.2 x 30 cc/hr via GT infusing well. FC draining to adequate yellowish UOP. Observed isolation prec. Safety prec kept in place w/ bed in lowest & locked pos. Call light w/in reach. Endorsed to PM RN for JOSE GUADALUPE.
--- NOTE | 2019-03-13 22:00 | NUR ---
RN NOTES RECHECKED PATIENT GTUBE RESIDUAL STILL INCREASED 150ML. WILL CONT TO HOLD GT FEEDING AND RECHECK IN 1-2HRS.
[2019-03-14] VITALS (53 sets, daily range): BP systolic 43–142; BP diastolic 27–73
[2019-03-14] MEDS: BLOOD SUGAR DIAGNOSTIC 1 EACH STRIP IN SCH ×2 (00:05→06:33)
[2019-03-14] MEDS: INSULIN REGULAR, HUMAN 100 UNIT/ML 3 ML VIAL SQ PRN ×2 (00:33→06:42)
[2019-03-14] MEDS: GLUCERNA 1.2 1,000 ML BOTTLE NG PRN (00:55)
[2019-03-14] MEDS: PROPOFOL 100 ML IV PRN ×2 (01:30→05:02)
[2019-03-14] MEDS: Sodium Acetate 150 MEQ in IV D5W 1,000 ML IV PRN (01:51)
[2019-03-14] MEDS: PHENYLEPHRINE 80 MG in IV D5W 250 ML IV PRN ×2 (02:03→07:11)
[2019-03-14 04:53] LABS: BASOPHILS # (AUTO) 0.1 /CMM (0.0-0.2); BASOPHILS % (AUTO) 0.7 % (0.0-2.0); EOSINOPHILS % (AUTO) 1.7 % (0.0-6.0); HEMATOCRIT 25 % (33-45); HEMOGLOBIN 8.4 g/dL (11.5-14.8); LYMPHOCYTES # (AUTO) 0.7 /CMM (0.8-4.8); LYMPHOCYTES % (AUTO) 7.7 % (20.0-44.0); MEAN CORPUSCULAR HGB CONC 34 g/dl (31.0-36.0); MEAN CORPUSCULAR VOLUME 109 fL (82-100); MONOCYTES % (AUTO) 0.2 % (2.0-12.0); NEUTROPHILS # (AUTO) 8.4 /CMM (1.8-8.9); NEUTROPHILS % (AUTO) 89.7 % (43.0-81.0); RED BLOOD CELL COUNT(AUTO) 2.28 MIL/uL (4.0-5.2); WHITE BLOOD COUNT (AUTO) 9.4 K/uL (4.3-11.0)
[2019-03-14 05:07] LABS: CALCIUM, SERUM 8.6 mg/dL (8.5-10.1); CARBON DIOXIDE 16 mmol/L (21-32); CHLORIDE 106 mmol/L (98-107); CREATININE 1.7 mg/dL (0.6-1.3); GLUCOSE 186 mg/dL (74-106); MAGNESIUM 1.9 mg/dL (1.8-2.4); PHOSPHORUS 5.3 mg/dL (2.5-4.9); POTASSIUM 3.9 mmol/L (3.5-5.1); SODIUM SERUM 136 mmol/L (136-145); UREA NITROGEN, BLOOD 39 mg/dL (7-18)
[2019-03-14 05:19] LABS: PLATELET COUNT (AUTO) 11 /CMM (150-450)
--- NOTE | 2019-03-14 05:58 | NUR ---
RN NOTES LAB CALLED FOR ABNORMAL LAB RESULT PLT 11. HOSPITALIST MADE AWARE REGARDING PATIENT ABNORMAL LAB RESULT AND GUMS BLEEDING. ALSO STATED THAT LAB TRYING TO REDRAW BLOOD RIGHT NOW. ORDERED TO WAIT FOR REDRAW BLOOD RESULT. WILL CONT TO MONITOR PT CLOSELY.
[2019-03-14] MEDS: METOCLOPRAMIDE HCL 10 MG/10 ML UDC GT SCH (06:20)
--- NOTE | 2019-03-14 07:15 | NUR ---
RN CLOSING NOTES PATIENT IN BED SEDATED, ORALLY INTUBATED WITH MECHANICAL VENTILATOR WITH SETTINGS AC 28, TV 600, FIO2 100, PEEP OF 12, SATURATING 90% AT THE MOMENT. ON PROPOFOL DRIP AT 60MCG, MARIBELL AT 270MCG, AND D5W WITH NA ACETATE 70ML/HR. ALL INFUSING WELL. ON TELE MONITOR ST HR 100'S. IV SITES ARTHUR PICC LINE AND LUDIN MIDLINE, BOTH INTACT AND PATENT, SITES C/D/I. GT FEEDING FLUSHING AND PATENT, GLUCERNA RUNNING AT 10ML/HR. MIRANDA CATH INTACT AND DRAINING YELLOW URINE NOTED. ISOLATION PRECAUTION AND ASPIRATION MEASURES NOTED IN PLACE, SAFETY MEASURES IN PLACE; BED IS LOW AND IN LOCKED POSITION, CALL LIGHT WITHIN REACH, BED ALARM ON, SRX3, HOB ELEVATED. LAB PERSONNEL AND CHARGE NURSE TRIED TO REDRAW BLOOD TWICE BUT UNSUCCESSFUL, CALLED LAB TO SEND SOMEONE UP TO REDRAW AGAIN, ANOTHER LAB PERSONNEL CURRENTLY IN THE ROOM TRYING TO DRAW BLOOD. ENDORSED TO AM RN FOR JOSE GUADALUPE.
[2019-03-14] MEDS: NOREPINEPHRINE 16 MG in IV D5W 500 ML IV PRN (07:32)
--- NOTE | 2019-03-14 07:35 | NUR ---
ACCOUNTS RECEIVABLE SPECIALIST: pt.is deeply sedated with 60mcg/kg/m Diprivan, no cough reflex, no reaction by pain stimuli, had restless, ativan doses before by report, O2sat. 89-91%, RR 30-32, on FiO2 100%, peep 12, AC 28, unable to read BP now, before , reapplied BP cuff/pt waiting Gering placement, HR 80 now, decreased sedation to Diprivan 50mcg/kg/m, increased Yves gtt to max now, will restart levo gtt, GTF 10 ml/h now/had high residual episodes/25 ml residual now, CVP 23 now
--- NOTE | 2019-03-14 07:40 | NUR ---
ELEMENT WINDING MACHINE TENDER: platelets 11 k, need to redraw blood, pharmacy notified by report
--- NOTE | 2019-03-14 07:41 | NUR ---
PATIENT ACCOUNTING REPRESENTATIVE: lab was notified to redraw blood
[2019-03-14 07:45] LABS: BAND % (MANUAL) 10 % (0.0-5.0); EOSINOPHILS % (MANUAL) 1 % (0-4); LYMPHOCYTES % (MANUAL) 3 % (16-48); MONOCYTES % (MANUAL) 3 % (0-11.0); NEUTROPHILS % (MANUAL) 83 (42-76)
--- NOTE | 2019-03-14 08:00 | NUR ---
EXHAUST AND MUFFLER FITTER: neurostatus: no cough/gag reflex, no corneal reflex, no pupils reaction, no any activity by pain stimuli, sedated with 50 mcg/kg/m Diprivan, O2sat. 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
--- NOTE | 2019-03-14 08:30 | NUR ---
ASSISTANT SALES DIRECTOR: is in room, updated with pt.current status, sedation level, neurostatus, pressors, section amount, I/O, IVF
[2019-03-14 08:39] LABS: ABG BASE EXCESS -14.4 mmol/L; ABG PCO2 29.4 mmHg (35.0-45.0); ABG PH 7.225 (7.350-7.450); ABG PO2 68.7 mmHg (75.0-100.0); AaDO2 614.9 mmHg; COHb 0.2 % (0.5-1.5); MetHb 0.3 % (0.0-1.5); O2Hb 90.5 % (94.0-97.0); PEEP,BG 12 cm H2O; SITE, ABG Left Radial; VENT MODE, BG AC VC +; VT, ABG 600 mL
--- NOTE | 2019-03-14 09:00 | NUR ---
FAMILY AND DIVORCE LEGAL ASSISTANT: O2sat. 80-90%, RR 29-31, ST, restarted Levophed gtt d/t low BP, needs A-line, reapplied BP cuff multiple to read BP
--- NOTE | 2019-03-14 09:15 | NUR ---
NUCLEAR MEDICINE TECH: O2sat. 70-80% now, max of Yves gtt, Levophed gtt started, called pt family, charge nurse updated
--- NOTE | 2019-03-14 09:20 | NUR ---
FLOORING GRADER: pt got VT/VF, O2sat. 40-50% now, unable to read BP by multiple cuff reapplied, on Yves gtt max, Levophed increased, called
--- NOTE | 2019-03-14 09:23 | NUR ---
LAUNDRETTE OWNER: no palpable pulse, asystolic on monitor, no any neurostimuli reaction, pt is pronounced, RT is in room, called charge nurse
--- NOTE | 2019-03-14 09:24 | NUR ---
JIG BORING MACHINE OPERATOR FOR METAL: pt is asystolic on monitor, no pulse, unable to read BP, no any neurostimuli reaction, pupils are fixed, pt is pronounced by charge nurse, disconnected from vent, no breathing, called pt family
--- NOTE | 2019-03-14 10:20 | NUR ---
OIL EXPELLER: one legacy reported, see #, pt family is in room, asked more time for family members to visit
--- NOTE | 2019-03-14 11:00 | NUR ---
AUTO MECHANICS INSTRUCTOR: pt has risk for blood/body fluids leaks d/t low platelets, bleeding before, keep IV catheters inside/charge nurse is agree
--- NOTE | 2019-03-14 11:30 | NUR ---
CARDIAC MONITOR TECHNICIAN: pt daughter called to [facility] to order picker, family members are still in room
[2019-03-14] MEDS ORDERED: VANCOMYCIN 0.75 GM in IV D5W 250 ML IV SCH (12:00)
--- NOTE | 2019-03-14 13:00 | NUR ---
PUBLIC INFORMATION DIRECTOR: call to [facility] nguyen
--- NOTE | 2019-03-14 13:30 | NUR ---
AIR HOLE DRILLER: body relieved to [facility] transportation team, form completed, pt.family was in room
[2019-04-18 01:40] LABS: CREATININE KINASE (CK),MB 11.3 ng/mL (0.0-5.3)
== END 2019-03-14 09:24 | disposition expired | DRG 870 ==
LOC: ER 10:33 → ICU 12:56
PROVIDERS: ADMIT Hospitalist; ATTEND Registered Nurse
PROC: 5A1955Z Respiratory Ventilation, Greater than 96 Consecutive Hours (ICD-10-PCS; principal; 2019-03-06)
PROC: 0BH18EZ Insertion of Endotracheal Airway into Trachea, Via Natural or Artificial Opening Endoscopic (ICD-10-PCS; 2019-03-06)
PROC: 02HV33Z Insertion of Infusion Device into Superior Vena Cava, Percutaneous Approach (ICD-10-PCS; 2019-03-06)
PROC: B548ZZA Ultrasonography of Superior Vena Cava, Guidance (ICD-10-PCS; 2019-03-06)
PROC: 05HA33Z Insertion of Infusion Device into Left Brachial Vein, Percutaneous Approach (ICD-10-PCS; 2019-03-10)
DX: A41.9 Sepsis, unspecified organism (principal); L89.154 Pressure ulcer of sacral region, stage 4; G93.41 Metabolic encephalopathy; J18.9 Pneumonia, unspecified organism; I21.4 Non-ST elevation (NSTEMI) myocardial infarction; J96.01 Acute respiratory failure with hypoxia; R65.21 Severe sepsis with septic shock; N17.0 Acute kidney failure with tubular necrosis; J10.00 Influenza due to other identified influenza virus with unspecified type of pneumonia; D68.59 Other primary thrombophilia; N17.9 Acute kidney failure, unspecified; E44.0 Moderate protein-calorie malnutrition; J90 Pleural effusion, not elsewhere classified; E87.2 Acidosis; D61.818 Other pancytopenia; E83.39 Other disorders of phosphorus metabolism; E83.42 Hypomagnesemia; Z86.73 Personal history of transient ischemic attack (TIA), and cerebral infarction without residual deficits; Z93.1 Gastrostomy status; G40.909 Epilepsy, unspecified, not intractable, without status epilepticus; F03.90 Unspecified dementia, unspecified severity, without behavioral disturbance, psychotic disturbance, mood disturbance, and anxiety; E87.6 Hypokalemia; F20.9 Schizophrenia, unspecified; I10 Essential (primary) hypertension; F31.9 Bipolar disorder, unspecified; K21.9 Gastro-esophageal reflux disease without esophagitis; M06.9 Rheumatoid arthritis, unspecified; R13.10 Dysphagia, unspecified; Z88.5 Allergy status to narcotic agent; Z88.8 Allergy status to other drugs, medicaments and biological substances; Z79.82 Long term (current) use of aspirin; Z79.899 Other long term (current) drug therapy; E78.5 Hyperlipidemia, unspecified; I25.10 Atherosclerotic heart disease of native coronary artery without angina pectoris; D64.9 Anemia, unspecified; D69.6 Thrombocytopenia, unspecified; N28.1 Cyst of kidney, acquired; L98.429 Non-pressure chronic ulcer of back with unspecified severity; Y95 Nosocomial condition; Z66 Do not resuscitate; Z85.3 Personal history of malignant neoplasm of breast; Z74.01 Bed confinement status; E78.00 Pure hypercholesterolemia, unspecified; E11.9 Type 2 diabetes mellitus without complications; K06.8 Other specified disorders of gingiva and edentulous alveolar ridge
CPT/HCPCS: 31720; 36415; 36569; 36600; 71045-TC; 76770-TC; 80048-TC; 80053-TC; 80061-TC; 80076-TC; 80202-TC; 81000-TC; 82533; 82550-TC; 82570-TC; 82803-TC; 82962-TC; 83605-TC; 83735-TC; 83880; 83970; 84100-TC; 84155; 84155-TC; 84165; 84300-TC; 84478-TC; 84484-TC; 85025-TC; 85396; 85730-TC; 86300; 87040-TC; 87070-TC; 87081-TC; 87086-TC; 93307-TC; 94002-TC; 94003-TC; 94640-TC; 94760-TC; A4216; A6248; A6403; A9563; C1751; G0378; J0330; J1720; J1815; J2060; J2185; J2370; J2543; J3370; J3475; J3480; J3490; J7030; J7060; J7070; J8597